=== PATIENT | female | born 1950 | race Caucasian/White ===

== ENCOUNTER → 2021-10-17 | Outpatient (CLI) | payer MEDICARE | END | disposition home or self-care (01) | LOC: LABWHC1 15:48 | PROVIDERS: ATTEND Psychiatry & Neurology Neurology | DX: Z01.818 Encounter for other preprocedural examination (principal) ==

== ENCOUNTER → 2022-06-20 | Outpatient (CLI) | payer MEDICARE | END | disposition home or self-care (01) | LOC: LABPAT 13:06 | PROVIDERS: ATTEND Orthopaedic Surgery | DX: Z01.812 Encounter for preprocedural laboratory examination (principal); M16.12 Unilateral primary osteoarthritis, left hip; Z22.322 Carrier or suspected carrier of Methicillin resistant Staphylococcus aureus | CPT/HCPCS: 87070 ==

== ENCOUNTER 2022-06-27 05:58 | Inpatient (IN) | payer MEDICARE ==
[2022-06-23 11:37] VITALS: BMI 26.0
--- NOTE | 2022-06-26 08:53 | P.HPOR ---
History of Present Illness H&P Date: 06/26/22 Chief Complaint: Left hip pain The patient is a 72-year-old female who presents with progressive left hip pain secondary to osteoarthrosis for the past 2 years. Her symptoms recently are worsening. She has pain with any weightbearing activities. She has a difficult time with walking and stairs. She does use a walker. She notes significant night symptoms. She's had previous injections without much relief. Review of Systems As per HPI Past Medical History Past Medical History: Diabetes Mellitus, Hearing Disorder / Deafness, Hypertension Additional Past Medical History / Comment(s): Migraines. Hx kidney stones. Has Pain Pump with only Saline in it. Hard of hearing. Hx severe UTI's, on Macrobid preventatively for the last 3 months. History of Any Multi-Drug Resistant Organisms: None Reported Past Surgical History: Appendectomy, Cholecystectomy Additional Past Surgical History / Comment(s): Procedure for kidney stones, D&C for miscarriage, partial hysterectomy, pain pump placed. Past Anesthesia/Blood Transfusion Reactions: Postoperative Nausea & Vomiting (PONV) Past Psychological History: Anxiety Smoking Status: Never smoker Past Alcohol Use History: None Reported Past Drug Use History: None Reported - Past Family History Sister(s) Family Medical History: Cancer Additional Family Medical History / Comment(s): Another sister had ALS. Son(s) Family Medical History: Deep Vein Thrombosis (DVT) Medications and Allergies Home Medications Medication Instructions Recorded Confirmed Type Acetaminophen [Tylenol] 325 - 650 mg PO Q4H PRN 06/23/22 06/23/22 History Aspirin [Adult Low Dose Aspirin EC] 81 mg PO DAILY 06/23/22 06/23/22 History DULoxetine HCL [Cymbalta] 120 mg PO QAM 06/23/22 06/23/22 History Folic Acid 1 mg PO HS 06/23/22 06/23/22 History Insulin Glargine,Hum.rec.anlog 25 units SQ HS 06/23/22 06/23/22 History [Lantus Solostar Pen] LORazepam [Ativan] 0.5 mg PO HS 06/23/22 06/23/22 History Nitrofurantoin Monohyd/M-Cryst 50 mg PO HS 06/23/22 06/23/22 History [Macrobid] Oxybutynin Chloride 5 mg PO BID 06/23/22 06/23/22 History Propranolol HCl [Inderal] 60 mg PO QAM 06/23/22 06/23/22 History QUEtiapine [SEROquel] 100 mg PO W/SUPPER 06/23/22 06/23/22 History Thiamine [Vitamin B-1] 100 mg PO HS 06/23/22 06/23/22 History Allergies Allergy/AdvReac Type Severity Reaction Status Date / Time iodine Allergy Dyspnea Verified 06/23/22 11:13 shellfish derived [Shellfish] Allergy Dyspnea Verified 06/23/22 11:13 morphine AdvReac Hallucinati Verified 06/23/22 11:39 ons Steroids AdvReac Causes Uncoded 06/23/22 11:40 UTI's Physical Examination - Hip left Gait: antalgic Tenderness with palpation: anterior Pain with motion: internal rotation and hip flexion ROM: flexion: 70 degrees ROM: internal rotation: 0 degrees (With pain) ROM: external rotation: 30 degrees Crepitus with motion: Yes Strength: extension: 5/5 Strength: flexion: 5/5 Strength: abduction: 5/5 Tests: impingement tests: positive Results The patient is a well-developed well-nourished female approximately 5 foot 3, 170 pounds of endomorphic habitus. HEENT exam is nonfocal. She has limited passive motion of the left hip. Straight leg raise is negative. She has shortening of the left lower extremity compared to the right. Her distal neurovascular appears intact in the left lower extremity. - Diagnostic results Hip x-ray: image reviewed (2 views of the left hip obtained in the office show severe left hip osteoarthrosis with [id number] changes and subchondral sclerosis.) Assessment and Plan Assessment: Left hip severe osteoarthrosis History of chronic low back pain with pain pump Plan: I talked to the patient with regard to her condition along with treatment options. This point she is quite symptomatic and limited because of pain related to her left hip osteoarthrosis despite previous conservative measures. After thorough discussion she opted to proceed with surgery. Operative risks were discussed at length in layman's terms. We will institute DVT prophylaxis postoperatively. We'll plan to proceed with left total hip arthroplasty utilizing a lateral approach.
[~2022-06-27 05:58] MED LIST: ACETAMINOPHEN TAB 500 MG TAB PO PRN; MELOXICAM 7.5 MG TAB PO PRN; TRANEXAMIC ACID IN NACL,ISO-OS 1,000 MG in SALINE 1 100ML.BAG IVPB PRN
[2022-06-27] MEDS ORDERED: MIDAZOLAM 2 MG/2 ML VIAL IV PRN (06:04)
[2022-06-27] MEDS ORDERED: ONDANSETRON 4 MG/2 ML VIAL IVP ONE (06:04)
[2022-06-27] MEDS ORDERED: DEXAMETHASONE SOD PHOSPHATE 4 MG/ML 1 ML VIAL IV ONE (06:04)
[2022-06-27] MEDS ORDERED: LIDOCAINE 1% (10MG/ML) FOR IV START INTRADERMA PRN (06:04)
[2022-06-27] MEDS: LACTATED RINGERS 1,000 ML IV SCH (06:28)
[2022-06-27 06:48] LABS: Glucose,Whole Blood 138 mg/dL (70-110)
[2022-06-27] MEDS ORDERED: HYDROmorphone 0.5 MG/0.5 ML SYRINGE IVP PRN ×2 (07:00→09:15)
[2022-06-27] MEDS ORDERED: ROPIVACAINE 5 MG/ML 30 ML VIAL ONE (07:39)
[2022-06-27] MEDS ORDERED: PROPOFOL 10 MG/ML 20 ML VIAL IV ONE (07:39)
[2022-06-27] MEDS ORDERED: GLYCOPYRROLATE 0.2 MG/ML 2 ML VIAL ONE (07:39)
[2022-06-27] MEDS ORDERED: fentaNYL (PF) 50 MCG/ML 2 ML AMP ONE (07:39)
[2022-06-27] MEDS ORDERED: ePHEDrine 50 MG/ML 1 ML VIAL ONE (07:39)
[2022-06-27] MEDS ORDERED: PHENYLEPHRINE-0.9% NACL SYG 1,000 MCG/10 ML SYRINGE ONE (07:39)
[2022-06-27] MEDS ORDERED: TRANEXAMIC ACID IN NACL,ISO-OS 1,000 MG/100 ML BAG ONE (07:39)
[2022-06-27] MEDS ORDERED: KETAMINE 10 MG/ML 20 ML VIAL ONE (07:39)
[2022-06-27] MEDS ORDERED: ceFAZolin 1,000 MG in SODIUM CHLORIDE 0.9% 1,000 ML IRRIGATION ONE (08:16)
[2022-06-27] MEDS ORDERED: NALOXONE 0.4 MG/ML 1 ML VIAL IV PRN (09:15)
[2022-06-27] MEDS ORDERED: MAGNESIUM HYDROXIDE 2,400 MG/10 ML CUP PO PRN (09:15)
[2022-06-27] MEDS ORDERED: HYDROcodone/APAP 7.5-325MG 1 EACH TAB PO PRN (09:15)
--- NOTE | 2022-06-27 09:31 | P.OP ---
Date of Procedure: 06/27/22 Preoperative Diagnosis: Left hip severe osteoarthrosis Postoperative Diagnosis: Same Procedure(s) Performed: Left total hip arthroplastylateral approachpress-fit Implants: Depuy Corail size 9/125/collared high offset femoral stem, 36+1.5 ceramic femoral head, 54 mm Truro acetabular shell with neutral polyethylene liner. Anesthesia: regional, spinal Surgeon: Jimenez Rubio Housing Installer #1: Emigdio Parish Estimated Blood Loss (ml): 100 Pathology: other (Femoral head) Condition: stable Disposition: PACU Indications for Procedure: The patient's a 72-year-old female who presents with progressive left hip pain secondary to osteoarthrosis despite conservative measures. A discussion of the risks and benefits of operative intervention versus continued conservative measures was made with patient. She opted to proceed with surgery. Operative risks to include infection, fracture, neurovascular injury, development of blood clots, leg length discrepancy, instability, possible component loosening/failure need for subsequent procedures was discussed. Informed consent was obtained. Operative Findings: As below Description of Procedure: The patient was brought to the operating room, and after induction of spinal anesthesia was placed in a lateral decubitus position. The bony prominences were appropriately padded. The pelvis was stable perpendicular to the floor with a pegboard. The left lower extremity was prepped and draped in normal fashion. A 12 cm incision was then made centered over the greater trochanter extending superiorly to level the ASIS and distally in line with the femoral shaft. The skin and subcutaneous tissues were divided sharply. Electrocautery was used for hemostasis. The fascia alethea and gluteus reji fascia was split in line with the skin incision. The muscle fibers were bluntly dissected proximally. A self-retaining retractor was placed. The anterior and posterior margins of the gluteus medius muscles identified and the anterior two thirds was detached from the greater trochanter with electrocautery. The gluteus minimus tendon was identified and detached in a similar fashion. A wide capsulotomy was performed. The femoral neck fracture was identified in the lower neck cut was made approximately 1 1/2 cm above the level of the lesser trochanter with a sagittal saw at a 45 the shaft. The head was then extracted with a corkscrew. Attention was then paid towards preparing the acetabular. Anterior and posterior retractors were placed. The remaining capsular labral tissues debrided sharply clearly defining the acetabular margins. Began reaming with a knee 9 mm reamer taking care to initially medialize, then reaming at 45 of abduction and 20 of anteversion. Sequential reaming is performed up to 53 mm. This was down to bleeding bony surface. A trial 54 mm acetabular shell was inserted at 45 of abduction and 20 of anteversion. This was fully seated. There was good rim fit and stability. A neutral polyethylene liner was then impacted. Care taken to avoid any soft tissue interposition. Attention was then paid towards preparing the proximal femur. A box chisel was used to open the metaphyseal region. A canal finder was used to find the femoral canal. Sequential broaching was performed up to a size 9. This is placed in 15 of anteversion with the leg perpendicular floor judging off the trans-epicondylar axis. There is good rotational stability. A calcar mill was used to fashion the medial calcar. A trial 125 high offset neck along with a 36 mm + 1.5 trial head was placed. The hip was gently reduced. It was taken through range of motion. I felt to be stable in flexion and extension with internal and external rotation. I felt there was adequate islam of soft tissue tension. The hip was gently dislocated. The trial components removed. Pulsatile lavage was utilized. The final size 09 125 degree high offset collared femoral stem was inserted again with the leg perpendicular to the floor in 15 of anteversion. Again there was good rotational stability. A 36 mm + 1.5 ceramic chrome femoral head was gently impacted. The hip was gently reduced. Again it was taken through motion and felt to be stable in flexion and extension with internal and external rotation. Pulsatile lavage was again utilized. With the leg in abduction the gluteus minimus and medius tendons reattached to the greater trochanter with #2 Ethibond suture. There was minimal drainage therefore a deep drain was not placed. The fascia alethea and gluteus reji fascia was closed w ith #2 Ethibond suture. The subcutaneous tissues were reapproximated interrupted 2-0 Vicryl sutures. The skin was reapproximated with 3-0 subcuticular strata fix suture. Skin tape and adhesive was applied. A sterile dressing was applied. The patient was awoken from sedation and transferred to recovery room in good condition. Blood loss was estimated 100 mL. No complications were incurred. Sponge and needle counts were correct in the case. Emigdio CHOW assisted during the major composes case to include exposure, implantation, and closure.
[2022-06-27 09:52] LABS: Glucose,Whole Blood 119 mg/dL (70-110)
--- NOTE | 2022-06-27 10:03 | XR ---
EXAMINATION TYPE: XR Hip Limited LT DATE OF EXAM: 06/27/2022 COMPARISON: None HISTORY: Posthip surgery TECHNIQUE: Single AP left hip FINDINGS: There is a left hip prosthesis with acetabular component. No acute fractures are evident. E lectronic device overlies the pelvis. IMPRESSION: 1. No acute fractures post left hip replacement.
[2022-06-27 11:33] LABS: Glucose,Whole Blood 127 mg/dL (70-110)
[2022-06-27 11:44] LABS: Basophils % (A) 0 %; Eosinophils # (A) 0.3 k/uL (0-0.7); Eosinophils % (A) 3 %; HCT 38.3 % (34.0-46.0); HGB 12.1 gm/dL (11.4-16.0); Lymphocytes # (A) 2.4 k/uL (1.0-4.8); Lymphocytes % (A) 27 %; MCH 28.9 pg (25.0-35.0); MCHC 31.6 g/dL (31.0-37.0); MCV 91.3 fL (80.0-100.0); Mean Platelet Volume 7.7; Monocytes # (A) 0.6 k/uL (0-1.0); Monocytes % (A) 6 %; Neutrophils # (A) 5.7 k/uL (1.3-7.7); Neutrophils % (A) 62 %; Platelet Count 196 k/uL (150-450); RDW 13.9 % (11.5-15.5); WBC 9.2 k/uL (3.8-10.6)
[2022-06-27 11:50] LABS: ALT 19 U/L (4-34); AST 35 U/L (14-36); African American GFR (CKD) >90 (>60 ml/min/1.73 sqM); Albumin 3.2 g/dL (3.5-5.0); Albumin/Globulin Ratio 1.4; Alkaline Phosphatase 76 U/L (38-126); Anion Gap 6 mmol/L; Blood Urea Nitrogen 17 mg/dL (7-17); Calcium 8.6 mg/dL (8.4-10.2); Carbon Dioxide 29 mmol/L (22-30); Chloride 101 mmol/L (98-107); Globulin 2.3 g/dL; Glucose 132 mg/dL (74-99); Non-African American GFR(CKD) 88 (>60 ml/min/1.73 sqM); Potassium 4.7 mmol/L (3.5-5.1); Sodium 136 mmol/L (137-145); Total Bilirubin 0.4 mg/dL (0.2-1.3); Total Protein 5.5 g/dL (6.3-8.2)
--- NOTE | 2022-06-27 12:05 | XR ---
EXAMINATION TYPE: XR chest 1V portable DATE OF EXAM: 06/27/2022 COMPARISON: None INDICATION: CHF TECHNIQUE: Single frontal view of the chest is obtained. FINDINGS: The heart size is normal. The pulmonary vasculature is normal. Some mild subsegmental atelectasis may be at the lung bases. Lungs otherwise appear clear. IMPRESSION: 1. Suggestion of mild subsegmental atelectasis lung bases.
[2022-06-27] MEDS ORDERED: IPRATROPIUM-ALBUTEROL 3 ML NEB INHALATION PRN (12:39)
--- NOTE | 2022-06-27 13:14 | CONS ---
CONSULTATION REASON FOR CONSULTATION: Advice regarding diabetes mellitus and other issues requested by orthopedist. HISTORY OF PRESENT ILLNESS: This is a 72-year-old woman with a past medical history of multiple medical issues including diabetes mellitus type 2, underwent left total knee joint arthroplasty. Postoperatively, the patient was slightly hypoxic. The patient is slightly groggy at this time. I ordered a chest x-ray which showed some atelectasis mainly on the right side. There is no history of fever, rigors, or chills at this time. PAST MEDICAL HISTORY: Reviewed include diabetes, rest of the history and rest of the chart is also reviewed. HOME MEDICATIONS: Reviewed include valsartan, dose and rest of medications reviewed. ALLERGIES: Iodine, rest of the allergies reviewed. FAMILY HISTORY: History of cancer and ALS. SOCIAL HISTORY: No history of smoking or alcohol. REVIEW OF SYSTEMS: A 14-point review is negative except as mentioned. PHYSICAL EXAMINATION: VITAL SIGNS: Pulse is 69, blood pressure 106/60, respirations 14, the pulse ox was 99% on 6 L on the computer. HEENT: Conjunctivae normal. NECK: No jugular venous distention. CARDIOVASCULAR: S1, S2 muffled. RESPIRATIONS: Diminished at the bases, a few scattered rhonchi. ABDOMEN: Soft, nontender. LEGS: Status post surgery. NERVOUS SYSTEM: No focal deficits. LABORATORY DATA: Accu-Cheks 127, rest of the labs are noted. ASSESSMENT: 1. Status post left hip arthroplasty. 2. Atelectasis on the right mainly. 3. Diabetes mellitus type 2. 4. Hypertension. 5. Multiple medical issues. RECOMMENDATIONS AND DISCUSSION: This 72-year-old woman presents with multiple complex medical issues. At this time, I recommended to resume the home medication, monitor blood sugars closely, DVT prophylaxis. I would also recommend a course of bronchodilators and incentive spirometry. We will follow the patient closely. The patient may be asked to follow up with primary physician closely after discharge. MMODL / IJN: [id number] /
[2022-06-27] MEDS: IPRATROPIUM-ALBUTEROL 3 ML NEB INHALATION SCH ×2 (15:57→20:56)
[2022-06-27 16:44] LABS: Glucose,Whole Blood 170 mg/dL (70-110)
[2022-06-27] MEDS: QUEtiapine 50 MG TAB PO SCH (16:52)
[2022-06-27] MEDS: HYDROmorphone 1 MG/ML 1 ML SYRINGE IVP PRN ×2 (19:05→21:48)
[2022-06-27] MEDS: HYDROcodone/APAP 7.5-325MG 1 EACH TAB PO PRN (20:15)
[2022-06-27] MEDS: CYCLOBENZAPRINE 5 MG TAB PO PRN (20:16)
[2022-06-27] MEDS: FOLIC ACID 1 MG TAB PO SCH (20:17)
[2022-06-27] MEDS: THIAMINE 100 MG TAB PO SCH (20:17)
[2022-06-27] MEDS: LORazepam 0.5 MG TAB PO SCH (20:18)
[2022-06-27] MEDS: SENNOSIDES-DOCUSATE SODIUM 1 EACH TAB PO SCH (20:18)
[2022-06-27] MEDS ORDERED: OXYBUTYNIN CHLORIDE 5 MG TAB PO SCH (21:00)
[2022-06-27 21:40] LABS: Glucose,Whole Blood 199 mg/dL (70-110)
[2022-06-27] MEDS: INSULIN DETEMIR (LEVEMIR) 100 UNIT/ML SYR SQ SCH (21:45)
--- NOTE | 2022-06-27 22:31 | P.ANPRN ---
Procedure Note - Anesthesia - Nerve Block Performed Left [place] Single Date of Procedure: 06/27/22 Procedure Start Time: 07:18 Procedure Stop Time: 07:26 Location of Patient: PreOp Indication: Acute Post-Operative Pain, Requested by Surgeon Sedation Type: Sedate with meaningful contact maintained Preparation: Sterile Prep Position: Supine Needle Types: Pajunk Needle Gauge: 21 Ultrasound used to visualize needle placement: Yes Ultrasound used to observe medication spread: Yes Injectate: 0.5% Ropivacaine (see comment for volume) (30mL) Blood Aspirated: No Pain Paresthesia on Injection Noted: No Resistance on Injection: Normal Image Stored and Saved: Yes Events: Uneventful and Well Tolerated
[2022-06-28] MEDS: HYDROcodone/APAP 7.5-325MG 1 EACH TAB PO PRN ×2 (00:01→07:52)
[2022-06-28] MEDS: HYDROmorphone 1 MG/ML 1 ML SYRINGE IVP PRN ×4 (01:33→17:27)
[2022-06-28] MEDS: LACTATED RINGERS 1,000 ML IV SCH (02:46)
[2022-06-28 05:56] LABS: Glucose,Whole Blood 156 mg/dL (70-110)
[2022-06-28 07:08] LABS: Amorphous Sediment,Urine Few /hpf; Appearance,Urine Cloudy (Clear); Bacteria,Urine Rare /hpf; Bilirubin,Urine Negative (Negative); Blood,Urine Small (Negative); Color,Urine Yellow; Glucose,Urine (UA) Negative (Negative); Hyaline Casts,Urine 1 /lpf (0-2); Ketones,Urine Negative (Negative); Leukocyte Esterase,Urine Negative (Negative); Nitrite,Urine Negative (Negative); PH, Urine 7.5 (5.0-8.0); Protein,Urine Negative (Negative); RBC,Urine 39 /hpf (0-5); Specific Gravity,Urine 1.022 (1.001-1.035); Urobilinogen,Urine <2.0 mg/dL (<2.0); WBC,Urine 1 /hpf (0-5)
[2022-06-28] MEDS: CYCLOBENZAPRINE 5 MG TAB PO PRN (07:52)
[2022-06-28] MEDS: ASPIRIN 81 MG PO SCH (08:07)
[2022-06-28] MEDS: PROPRANOLOL 20 MG TAB PO SCH (08:07)
[2022-06-28] MEDS: VALSARTAN 40 MG TAB PO SCH (08:07)
[2022-06-28] MEDS: RIVAROXABAN 10 MG TAB PO SCH (08:07)
[2022-06-28] MEDS: DULoxetine HCL 60 MG CAPSULE.DR PO SCH (08:07)
[2022-06-28] MEDS: IPRATROPIUM-ALBUTEROL 3 ML NEB INHALATION SCH ×3 (08:51→20:04)
[2022-06-28] MEDS ORDERED: HYDROcodone/APAP 10-325MG 1 EACH TAB PO PRN (09:20)
--- NOTE | 2022-06-28 09:53 | P.PN ---
Subjective Progress Note Date: 06/28/22 Principal diagnosis: Left hip osteoarthritis Patient seen at bedside this morning mentioning that her pain has been very intense since surgery yesterday. Patient does not feel that a medication has been helping control her pain. Patient says most of the pain is located in her left hip. Patient says she has not been able to urinate since surgery yesterday. Patient says normally she is able to urinate okay home. Patient denies having any issues from her previous surgeries with urinary retention. Patient says she has not seen a urologist before. Patient says she is hoping to go home when she is discharged from the hospital. Patient says she does have a walker for home and her will be able to help her at home. Patient says she has not had bowel movement yet, however, patient says she has been passing gas. Patient denies chest pain, fever, shortness of breath, nausea, vomiting, change in vision, loss of bowel control. Objective - Vital Signs Vital signs: Vital Signs Temp 99.0 F 06/28/22 07:22 Pulse 87 06/28/22 07:22 Resp 20 06/28/22 07:22 BP 134/79 06/28/22 07:22 Pulse Ox 96 06/28/22 07:22 FiO2 Intake & Output 06/27/22 06/28/22 06/28/22 18:59 06:59 18:59 Intake Total 981 540 Output Total 100 800 Balance 881 -260 Weight 66.68 kg Intake: IV 801 Intake, IV Titration 340 Amount Lactated Ringers 1,000 ml 240 @ 20 mls/hr IV .Q24H [facility] Rx#:[id number] ceFAZolin 2 gm In Sodium 50 Chloride 0.9% 50 ml @ 100 mls/hr IVPB Q8HR [facility] Rx# :[id number] cefTRIAXone 1 gm In 50 Sodium Chloride 0.9% 50 ml @ 100 mls/hr IVPB Q24H [facility] Rx#:[id number] Oral 180 200 Output: Urine 800 Straight 800 Estimated Blood Loss 100 Other: # Voids 1 1 - Exam Left hip: Incision is clean, dry, and intact. The exofin fusion tape is in good condition. There is minimal soft tissue swelling and ecchymosis surrounding the medial and lateral aspects of the incision. Calf is soft, no tenderness with palpation. Plantar flexion, dorsiflexion, EHL, FHL are intact. Sensory exam to light touch throughout the extremity is intact, dorsal pedis pulses 2+. - Labs CBC & Chem 7: 06/27/22 11:25 06/27/22 11:25 Labs: Abnormal Lab Results - Last 24 Hours (Table) 06/27/22 06/27/22 06/27/22 Range/Units 09:50 11:25 11:30 Sodium 136 L (137-145) mmol/L Glucose 132 H (74-99) mg/dL POC Glucose (mg/dL) 119 H 127 H (70-110) mg/dL Total Protein 5.5 L (6.3-8.2) g/dL Albumin 3.2 L (3.5-5.0) g/dL Urine Appearance (Clear) Urine Blood (Negative) Urine RBC (0-5) /hpf Amorphous Sediment (None) /hpf Urine Bacteria (None) /hpf 06/27/22 06/27/22 06/28/22 Range/Units 16:43 21:38 05:55 Sodium (137-145) mmol/L Glucose (74-99) mg/dL POC Glucose (mg/dL) 170 H 199 H 156 H (70-110) mg/dL Total Protein (6.3-8.2) g/dL Albumin (3.5-5.0) g/dL Urine Appearance (Clear) Urine Blood (Negative) Urine RBC (0-5) /hpf Amorphous Sediment (None) /hpf Urine Bacteria (None) /hpf 06/28/22 Range/Units 06:10 Sodium (137-145) mmol/L Glucose (74-99) mg/dL POC Glucose (mg/dL) (70-110) mg/dL Total Protein (6.3-8.2) g/dL Albumin (3.5-5.0) g/dL Urine Appearance Cloudy H (Clear) Urine Blood Small H (Negative) Urine RBC 39 H (0-5) /hpf Amorphous Sediment Few H (None) /hpf Urine Bacteria Rare H (None) /hpf Assessment and Plan Assessment: 1. Left hip osteoarthritis - Postoperative day 1 status post left total hip arthroplasty Plan: 1. Left hip osteoarthritis - patient at bedside this morning in a lot of pain. We'll change the medication from Wever 7.5 to Wever 10. Ice the hip on and off for 20 mins at a time. Pending PT evaluation. Patient does have a walker for home. Patient has had urinary retention. Patient has been straight cathed 2 times per nurse. If patient continues to have postoperative urinary retention we will consult urology for further intervention. We will keep patient one more night for pain control. Plan for discharge home tmrw vs [facility] tmrw. We will continue to follow patient during her stay in hospital. 2. Appreciate medical management 3. Pain management - Wever 10 mg/325 mg; Flexeril 5 mg twice a day; Dilaudid 4. DVT prophylaxis - Xarelto 5. GI prophylaxis - senna; milk of magnesia 6. PT/OT - weightbearing as tolerated with walker and assistance 7. Encourage incentive spirometer use 8. Discharge planning - home with health services vs [facility] tmrw Time with Patient: Less than 30
[2022-06-28 11:13] LABS: Glucose,Whole Blood 167 mg/dL (70-110)
[2022-06-28 11:42] LABS: Basophils # (A) 0.03 X 10*3/uL (0.00-0.10); Basophils % (A) 0.2 %; Eosinophils # (A) 0.09 X 10*3/uL (0.04-0.35); Eosinophils % (A) 0.7 %; HCT 37.5 % (37.2-46.3); HGB 12.2 g/dL (12.0-15.0); Immature Grans, Automated 0.5 %; Lymphocytes # (A) 3.34 X 10*3/uL (0.90-5.00); Lymphocytes % (A) 26.1 %; MCHC 32.5 g/dL (32.0-37.0); MCV 89.1 fL (80.0-97.0); Monocytes # (A) 1.17 X 10*3/uL (0.20-1.00); Monocytes % (A) 9.1 %; NRBC Per 100 WBC 0 /100 WBCS (0.0-0.0); Neutrophils # (A) 8.13 X 10*3/uL (1.80-7.70); Neutrophils % (A) 63.4 %; Platelet Count 230 X 10*3/uL (140-440); RBC 4.21 X 10*6/uL (4.10-5.20); RDW 13.8 % (11.5-14.5); WBC 12.82 X 10*3/uL (4.50-10.00)
--- NOTE | 2022-06-28 14:32 | PN ---
PROGRESS NOTE DATE OF SERVICE: 06/28/2022 SUBJECTIVE: This is a 72-year-old woman who was admitted with left hip arthroplasty, also had features of UTI. Patient also had atelectasis. No chest pain, no palpitations, no fever. The patient is complaining of severe pain. OBJECTIVE: VITAL SIGNS: Pulse is 96, blood pressure 130/73, respirations 17, temperature 99.8. The patient is mildly febrile. Pulse ox 94% on room air. HEENT: Conjunctivae normal. NECK: No jugular venous distention. CARDIOVASCULAR: S1, S2 muffled. RESPIRATIONS: Diminished at the basis, scattered rhonchi. ABDOMEN: Soft, nontender. NERVOUS SYSTEM: No focal deficits. LABORATORY DATA: Reviewed. ASSESSMENT: 1. Status post left hip arthroplasty. 2. Possible UTI with fever. 3. Atelectasis of the right lung mainly. 4. Diabetes mellitus type 2. 5. Hypertension. 6. Multiple medical issues. RECOMMENDATIONS AND DISCUSSION: Recommended to continue current management, continue symptomatic treatment. Obtain cultures, blood and urine cultures, also empiric antibiotics, otherwise to cover the UTI as well as possible developing pneumonia and guarded prognosis. Further recommendations to follow, closely follow with Orthopedic Surgery and Pain Management. MMODL / IJN: [id number] /
[2022-06-28 16:31] LABS: Glucose,Whole Blood 166 mg/dL (70-110)
[2022-06-28] MEDS: QUEtiapine 50 MG TAB PO SCH (17:12)
[2022-06-28 20:18] LABS: Glucose,Whole Blood 459 mg/dL (70-110)
[2022-06-28 20:19] LABS: Glucose,Whole Blood 178 mg/dL (70-110)
[2022-06-28] MEDS: THIAMINE 100 MG TAB PO SCH (21:17)
[2022-06-28] MEDS: FOLIC ACID 1 MG TAB PO SCH (21:17)
[2022-06-28] MEDS: INSULIN DETEMIR (LEVEMIR) 100 UNIT/ML SYR SQ SCH (21:17)
[2022-06-28] MEDS: SENNOSIDES-DOCUSATE SODIUM 1 EACH TAB PO SCH (21:17)
[2022-06-29] MEDS: HYDROmorphone 1 MG/ML 1 ML SYRINGE IVP PRN (00:07)
[2022-06-29] MEDS: HYDROcodone/APAP 5-325MG 1 EACH TAB PO PRN ×3 (05:42→17:31)
[2022-06-29] MEDS: CYCLOBENZAPRINE 5 MG TAB PO PRN (05:43)
[2022-06-29] MEDS: LORazepam 0.5 MG TAB PO SCH (05:56)
[2022-06-29 06:15] LABS: Glucose,Whole Blood 173 mg/dL (70-110)
[2022-06-29] MEDS: DULoxetine HCL 60 MG CAPSULE.DR PO SCH (07:54)
[2022-06-29] MEDS: ASPIRIN 81 MG PO SCH (07:54)
[2022-06-29] MEDS: RIVAROXABAN 10 MG TAB PO SCH (07:54)
[2022-06-29] MEDS: IPRATROPIUM-ALBUTEROL 3 ML NEB INHALATION SCH ×3 (09:09→21:02)
--- NOTE | 2022-06-29 09:35 | P.PN ---
Subjective Progress Note Date: 06/29/22 Principal diagnosis: Status post left total knee arthroplasty Patient was evaluated today at bedside, she is resting in her hospital bed. Patient seems very confused today at bedside. I did discuss this with nursing, she did mention that the patient's mentation was significantly improved this morning. She had received a combination of Ativan, Seroquel and pain medication. They've held her blood pressure medications along with altering the Ativan and Seroquel which has seemed to improve her mentation. Patient is also being worked up for urinary tract infection. She is an O 2 at bedside today. Patient notes discomfort in the left lower extremity. She states that she has not been up and ambulating at today. She has been urinating without difficulty. She currently denies any headaches, lightheadedness, chest pain, shortness of breath Objective - Vital Signs Vital signs: Vital Signs Temp 99.3 F 06/29/22 06:55 Pulse 92 06/29/22 09:17 Resp 19 06/29/22 06:55 BP 111/67 06/29/22 06:55 Pulse Ox 91 L 06/29/22 06:55 FiO2 Intake & Output 06/28/22 06/29/22 06/29/22 18:59 06:59 18:59 Output Total 350 Balance -350 Output: Urine 100 Post Void Residual 250 Other: Voiding Method Bedside Commode # Voids 1 2 - Exam Left lower extremity: Operative bandage was changed today at bedside. Incision is clean, dry and intact. Surgical tape is in good position and condition. No significant b ruising is present, mild swelling is present in the anterior lateral thigh. Plantar flexion, dorsiflexion, EHL, FHL is intact. Knee extension and flexion are intact. Patient does demonstrate weakness with hip flexion. Calf is soft, no tenderness with palpation. Dorsalis pedis pulses 2+ - Labs CBC & Chem 7: 06/28/22 05:43 06/27/22 11:25 Labs: Abnormal Lab Results - Last 24 Hours (Table) 06/28/22 06/28/22 06/28/22 Range/Units 05:43 11:12 16:30 WBC 12.82 H (4.50-10.00) X 10*3/uL Immature Gran # 0.06 H (0.00-0.04) X 10*3/uL Neutrophils # 8.13 H (1.80-7.70) X 10*3/uL Monocytes # 1.17 H (0.20-1.00) X 10*3/uL POC Glucose (mg/dL) 167 H 166 H (70-110) mg/dL 06/28/22 06/28/22 06/29/22 Range/Units 20:17 20:18 06:13 WBC (4.50-10.00) X 10*3/uL Immature Gran # (0.00-0.04) X 10*3/uL Neutrophils # (1.80-7.70) X 10*3/uL Monocytes # (0.20-1.00) X 10*3/uL POC Glucose (mg/dL) 459 H 178 H 173 H (70-110) mg/dL Microbiology - Last 24 Hours (Table) 06/28/22 06:10 Urine Culture - Preliminary Urine,Catheterized Assessment and Plan Assessment: Postoperative day #2 status post left total hip arthroplasty, lateral approach Altered mental status UTI Other medical comorbidities Plan: I did discuss with nursing today we would be adjusting her medications. I did discontinue the Lockhart 10 mg, Dilaudid and Flexeril at this time. We will c ontinue to utilize the Lockhart 5 mg/325 mg sparingly. Okay to use oral Tylenol Nursing plans to discuss with internal medicine and Ativan/Seroquel and alternatives GI and DVT prophylaxis, continue with stool softeners along with Xarelto 10 mg daily during hospital stay. Plan for utilize a patient of Xarelto 10 mg for 26 days at discharge Weight-bear as tolerated with walker Continue PT/OT Other medical specialty recommendations appreciated Discharge planning: Would recommend additional night stay in hospital to continue to monitor her mental status and optimize medications Time with Patient: Less than 30
[2022-06-29] MEDS: VALSARTAN 40 MG TAB PO SCH (09:42)
[2022-06-29] MEDS: LACTATED RINGERS 1,000 ML IV SCH (09:42)
[2022-06-29] MEDS: PROPRANOLOL 20 MG TAB PO SCH (09:42)
[2022-06-29 10:32] LABS: Basophils # (A) 0.03 X 10*3/uL (0.00-0.10); Basophils % (A) 0.3 %; Eosinophils # (A) 0.15 X 10*3/uL (0.04-0.35); Eosinophils % (A) 1.5 %; HCT 32.3 % (37.2-46.3); HGB 10.5 g/dL (12.0-15.0); Immature Grans, Automated 0.9 %; Lymphocytes # (A) 2.25 X 10*3/uL (0.90-5.00); Lymphocytes % (A) 22.2 %; MCH 29.4 pg (27.0-32.0); MCHC 32.5 g/dL (32.0-37.0); MCV 90.5 fL (80.0-97.0); Mean Platelet Volume 10.4 fL (9.5-12.2); Monocytes # (A) 1.19 X 10*3/uL (0.20-1.00); Monocytes % (A) 11.7 %; NRBC Per 100 WBC 0 /100 WBCS (0.0-0.0); Neutrophils # (A) 6.43 X 10*3/uL (1.80-7.70); Neutrophils % (A) 63.4 %; Platelet Count 168 X 10*3/uL (140-440); RBC 3.57 X 10*6/uL (4.10-5.20); RDW 14.4 % (11.5-14.5); WBC 10.14 X 10*3/uL (4.50-10.00)
[2022-06-29 10:34] LABS: African American GFR (CKD) 56.2 (60.0-200.0); Anion Gap 9.9 mmol/L (10.00-18.00); BUN/Creat Ratio 14.78 Ratio (12.00-20.00); Blood Urea Nitrogen 16.7 mg/dL (9.0-27.0); Calcium 8.7 mg/dL (8.7-10.3); Carbon Dioxide 25.5 mmol/L (20.0-27.5); Non-African American GFR(CKD) 48.5 (60.0-200.0); Potassium 3.7 mmol/L (3.5-5.5)
[2022-06-29 11:22] LABS: Glucose,Whole Blood 157 mg/dL (70-110)
--- NOTE | 2022-06-29 13:36 | PN ---
PROGRESS NOTE DATE OF SERVICE: 06/29/2022 SUBJECTIVE: This is a 72-year-old woman who was admitted after left hip arthroplasty, had possible UTI also. The patient is also confused, possibly secondary to medications. No chest pain or palpitations. OBJECTIVE: VITAL SIGNS: Pulse is 54, blood pressure 111/67, respirations 19. CHEST: Clear to auscultation. ABDOMEN: Soft, status post surgery. LABORATORY DATA: Labs are reviewed. ASSESSMENT: 1. Status post left hip arthroplasty. 2. Possible urinary tract infection with fever present on admission. 3. Atelectasis of the right lung possibly. 4. Diabetes mellitus, type 2. 5. Hypertension. 6. Multiple medical issues. RECOMMENDATIONS: Recommend to continue current medications. Continue symptomatic treatment. Continue incentive spirometry. Continue the antibiotics. We will cut down the pain medications and sedatives. Closely follow. Further recommendations to follow. MMDIONIL / CHANCEN: [id number] /
[2022-06-29 16:54] LABS: Glucose,Whole Blood 204 mg/dL (70-110)
[2022-06-29] MEDS: HYDROmorphone 0.5 MG/0.5 ML SYRINGE IVP PRN ×2 (20:06→23:06)
[2022-06-29 20:34] LABS: Glucose,Whole Blood 184 mg/dL (70-110)
[2022-06-29] MEDS: INSULIN DETEMIR (LEVEMIR) 100 UNIT/ML SYR SQ SCH (20:35)
[2022-06-29] MEDS: FOLIC ACID 1 MG TAB PO SCH (20:36)
[2022-06-29] MEDS: SENNOSIDES-DOCUSATE SODIUM 1 EACH TAB PO SCH (20:36)
[2022-06-29] MEDS: THIAMINE 100 MG TAB PO SCH (20:36)
[2022-06-30] MEDS: HYDROcodone/APAP 5-325MG 1 EACH TAB PO PRN ×2 (01:31→09:42)
[2022-06-30] MEDS: LACTATED RINGERS 1,000 ML IV SCH (06:10)
[2022-06-30 06:15] LABS: Glucose,Whole Blood 124 mg/dL (70-110)
[2022-06-30 08:15] VITALS: BP 145/78; RESP 16; TEMP 99
[2022-06-30] MEDS: VALSARTAN 40 MG TAB PO SCH (08:54)
[2022-06-30] MEDS: PROPRANOLOL 20 MG TAB PO SCH (08:54)
[2022-06-30] MEDS: ASPIRIN 81 MG PO SCH (08:54)
[2022-06-30] MEDS: RIVAROXABAN 10 MG TAB PO SCH (08:54)
[2022-06-30] MEDS: DULoxetine HCL 60 MG CAPSULE.DR PO SCH (08:54)
[2022-06-30] MEDS: IPRATROPIUM-ALBUTEROL 3 ML NEB INHALATION SCH ×2 (09:13→12:36)
--- NOTE | 2022-06-30 09:58 | P.DS ---
Providers Date of admission: 06/30/22 08:09 Expected date of discharge: 06/30/22 Attending physician: Jimenez Rubio Consults: 06/27/22 09:22 Consult Physician Routine Consulting Provider: Nohemy Livingston Consult Reason/Comments: Medical Management s/p left total hip arthroplasty (lateral approach) Do you want consulting provider notified?: Yes Primary care physician: Sonja Gilbert Hospital Course: Date of admission: 06/27/2022 Date of discharge: 06/30/2022 Admission diagnosis: Left hip osteoarthritis Discharge diagnosis: Same Attending physician: Dr. Rubio Surgical procedures: Left total hip arthroplasty Brief history: Patient is a 72-year-old female with a history of progressive primary left hip osteoarthritis. At this point patient has failed conservative treatment measures and has opted to proceed with a elective left total hip arthroplasty. Hospital course: Details of patient's surgery can be found in operative report. Patient tolerated the procedure well and was subsequently transported to orthopedic floor. Patient's orthopeidc and medical care was provided daily. Patient had daily laboratory tests performed for evaluation of overall blood counts. Patient had daily physical therapy to include strengthening range of motion as well as education with walker ambulation. Patient was treated with Xa relto for their postoperative DVT prophylaxis during their inpatient stay. Patient was noted to have a relatively uneventful postoperative course. Patient reported satisfactory pain control with oral pain medications by postoperative day there are 3. Patient showed satisfactory progress with physical therapy. Patient moved steadily through the program and had no difficulty meeting the goals by postoperative day 3. Given patient's otherwise satisfactory course and having met physical therapy goals, plan is to discharge patient to rehab on postoperative day 3. Discharge condition/disposition: Patient will be discharged to rehab in stable condition. Discharge medications: Instructions are given on resumption of patient's normal daily medications per primary care recommendation, in addition patient will be prescribed [place]; senna; Eliquis 2.5 mg BID x 2 weeks Discharge instructions: 1. Wound care and infection precautions, keep incision dry and covered while showering, no lotions, creams, moisturizers. No soaking, tubs, pools, hottubs. Do not scrub over the incision. 2. Weight-bear as tolerated with walker / cane until follow-up. 3. Ice and elevate when necessary. Do not exceed 20 minutes per hour with ice pack. 4. Utilize compression sleeve until seen at first follow up appointment. 5. Visiting nursing care. 6. Home physical therapy. 7. Pain meds and anticoagulants per prescription. 8. Pain medication has potential to cause constipation. Increase oral fluid and fiber intake. Contact primary care provider if you have not had a bowel movement within 48 hours after discharge 9. No anti-inflammatory medication until discussed at first post operative visit, this including Motrin, Aleve, Mobic, Diclofenac. 10. Follow up in office at 2 weeks postop with Celso Shelley PA-C / Emigdio Parish PA-C 11. Follow up with your primary care doctor 7-10 days after discharge. 12. Contact [facility] with any questions, . Assessment: Left hip osteoarthritis Procedures: Left total hip arthroplasty Patient Condition at Discharge: Good Plan - Discharge Summary Discharge Rx Participant: Yes New Discharge Prescriptions: New Magnesium Hydroxide [Milk of Magnesia Concentrate] 2,400 mg PO DAILY PRN ml PRN Reason: Constipation Apixaban [Eliquis] 2.5 mg PO BID #60 tab Sennosides/Docusate Sodium [Senna Plus 8.6-50 mg Softgel] 1 each PO DAILY #20 capsule HYDROcodone/APAP 5-325MG [[place] 5-325] 1 tab PO Q6HR PRN 3 Days #24 tab PRN Reason: Pain Continue DULoxetine HCL [Cymbalta] 120 mg PO QAM Aspirin [Adult Low Dose Aspirin EC] 81 mg PO DAILY Acetaminophen [Tylenol] 325 - 650 mg PO Q4H PRN PRN Reason: Pain Valsartan 40 mg PO DAILY Thiamine [Vitamin B-1] 100 mg PO HS Folic Acid 1 mg PO HS Insulin Glargine,Hum.rec.anlog [Lantus Solostar Pen] 25 units SQ HS Propranolol HCl [Inderal] 60 mg PO QAM Oxybutynin Chloride 5 mg PO BID Discontinued QUEtiapine [SEROquel] 100 mg PO W/SUPPER LORazepam [Ativan] 0.5 mg PO HS Nitrofurantoin Monohyd/M-Cryst [Macrobid] 50 mg PO HS Discharge Medication List Acetaminophen [Tylenol] 325 - 650 mg PO Q4H PRN 06/23/22 [History] Aspirin [Adult Low Dose Aspirin EC] 81 mg PO DAILY 06/23/22 [History] DULoxetine HCL [Cymbalta] 120 mg PO QAM 06/23/22 [History] Folic Acid 1 mg PO HS 06/23/22 [History] Insulin Glargine,Hum.rec.anlog [Lantus Solostar Pen] 25 units SQ HS 06/23/22 [History] Oxybutynin Chloride 5 mg PO BID 06/23/22 [History] Propranolol HCl [Inderal] 60 mg PO QAM 06/23/22 [History] Thiamine [Vitamin B-1] 100 mg PO HS 06/23/22 [History] Valsartan 40 mg PO DAILY 06/27/22 [History] Apixaban [Eliquis] 2.5 mg PO BID #60 tab 06/30/22 [Rx] HYDROcodone/APAP 5-325MG [[place] 5-325] 1 tab PO Q6HR PRN 3 Days #24 tab 06/30/22 [Rx] Magnesium Hydroxide [Milk of Magnesia Concentrate] 2,400 mg PO DAILY PRN ml 06/30/22 [Rx] Sennosides/Docusate Sodium [Senna Plus 8.6-50 mg Softgel] 1 each PO DAILY #20 capsule 06/30/22 [Rx] Follow up Appointment(s)/Referral(s): Emigdio Parish, TERI [PHYSICIAN BLENDING [employer] HELPER] - 2 Weeks Patient Instructions/Handouts: Total Hip Replacement (DC) Activity/Diet/Wound Care/Special Instructions: Orthopedic Discharge Instructions: 1. Wound care and infection precautions, keep incision dry and covered while showering, no lotions, creams, moisturizers. No soaking, pools, hot tubs. Do not scrub over incision. 2. Weight-bear as tolerated with walker / cane until follow-up. 3. Ice and elevate when necessary. Do not exceed 20 minutes per hour with ice pack. 4. Utilize compression sleeve until seen at first follow up appointment. 5. Pain meds and anticoagulants per prescription. 6. Pain medication has potential to cause constipation. Increase oral fluid and fiber intake. Contact primary care provider if you have not had a bowel movement within 48 hours after discharge. 7. No anti-inflammatory medication until discussed at first post operative visit, this including Motrin, Aleve, Mobic, Diclofenac. 8. Follow up in office at 2 weeks postop with Celso Shelley PA-C / Emigdio Parish PA-C 9. Follow up with your primary care doctor 7-10 days after discharge. 10. Contact [facility] with any questions, . Keep incision clean, dry, intact. While showering, cover fusion tape with Saran wrap. Keep fusion tape on until follow-up appointment in office in 2 weeks Discharge Disposition: TRANSFER TO SNF/ECF
--- NOTE | 2022-06-30 10:02 | P.PN ---
Subjective Progress Note Date: 06/30/22 Principal diagnosis: Left hip osteoarthritis Patient seen at bedside this morning lying semrirecumbent in bed. Patient says yesterday she did sit up in the chair for several hours. Patient says her hip is feeling a little bit better than it was the past couple days. Patient says she did get up with physical therapy yesterday and walked around the room a bit. Patient says she has urinated. Patient says she has not had bowel movement, however, patient says she has been passing gas. Patient says she does have a walker at home. Patient states most of the pain is right over the incision on the left hip. Patient denies radiation pain.Patient denies chest pain, fever, shortness of breath, nausea, vomiting, change in vision, loss of bowel control. Objective - Vital Signs Vital signs: Vital Signs Temp 99 F 06/30/22 07:01 Pulse 84 06/30/22 09:24 Resp 16 06/30/22 07:01 BP 145/78 06/30/22 07:01 Pulse Ox 94 L 06/30/22 07:01 FiO2 Intake & Output 06/29/22 06/30/22 06/30/22 18:59 06:59 18:59 Output Total 250 Balance -250 Output: Urine 250 Other: Voiding Method Bedside Commode # Voids 1 - Exam Left hip: Incision is clean, dry, and intact. The exofin fusion tape is in good condition. There is minimal soft tissue swelling and ecchymosis surrounding the medial and lateral aspects of the incision. Calf is soft, no tenderness with palpation. Plantar flexion, dorsiflexion, EHL, FHL are intact. Sensory exam to light touch throughout the extremity is intact, dorsal pedis pulses 2+. - Labs CBC & Chem 7: 06/29/22 04:23 06/29/22 04:23 Labs: Abnormal Lab Results - Last 24 Hours (Table) 06/29/22 06/29/22 06/29/22 Range/Units 04: 04:23 11:21 WBC 10.14 H (4.50-10.00) X 10*3/uL RBC 3.57 L (4.10-5.20) X 10*6/uL Hgb 10.5 L (12.0-15.0) g/dL Hct 32.3 L (37.2-46.3) % Immature Gran # 0.09 H (0.00-0.04) X 10*3/uL Monocytes # 1.19 H (0.20-1.00) X 10*3/uL Anion Gap 9.90 L (10.00-18.00) mmol/L Est GFR (CKD-EPI)AfAm 56.2 L (60.0-200.0) Est GFR (CKD-EPI)NonAf 48.5 L (60.0-200.0) Glucose 168 H (70-110) mg/dL POC Glucose (mg/dL) 157 H (70-110) mg/dL 06/29/22 06/29/22 06/30/22 Range/Units 16:53 20:32 06:13 WBC (4.50-10.00) X 10*3/uL RBC (4.10-5.20) X 10*6/uL Hgb (12.0-15.0) g/dL Hct (37.2-46.3) % Immature Gran # (0.00-0.04) X 10*3/uL Monocytes # (0.20-1.00) X 10*3/uL Anion Gap (10.00-18.00) mmol/L Est GFR (CKD-EPI)AfAm (60.0-200.0) Est GFR (CKD-EPI)NonAf (60.0-200.0) Glucose (70-110) mg/dL POC Glucose (mg/dL) 204 H 184 H 124 H (70-110) mg/dL Microbiology - Last 24 Hours (Table) 06/28/22 06:10 Urine Culture - Final Urine,Catheterized Assessment and Plan Assessment: 1. Left hip osteoarthritis - Postoperative day 3 status post left total hip arthroplasty Plan: 1. Left hip osteoarthritis - left total hip arthroplasty performed 06/27/2022. patient at bedside this morning. Continue with PT/OT daily. Discharge to [facility] today. 2. Appreciate medical management 3. Pain management - [place] 5mg/325mg 4. DVT prophylaxis - Xarelto in hospital; Going to rehab with Eliquis 2.5 mg BID x 2 weeks 5. GI prophylaxis - senna; milk of magnesia 6. PT/OT - weightbearing as tolerated with walker and assistance 7. Encourage incentive spirometer use 8. Discharge planning - [facility] today Time with Patient: Less than 30
[2022-06-30 11:04] LABS: Basophils # (A) 0.05 X 10*3/uL (0.00-0.10); Basophils % (A) 0.5 %; Eosinophils % (A) 3.7 %; Immature Grans, Automated 0.7 %; Lymphocytes # (A) 2.39 X 10*3/uL (0.90-5.00); MCH 29.5 pg (27.0-32.0); MCHC 32.4 g/dL (32.0-37.0); MCV 91.2 fL (80.0-97.0); Mean Platelet Volume 10.6 fL (9.5-12.2); Monocytes # (A) 1.03 X 10*3/uL (0.20-1.00); Monocytes % (A) 9.5 %; NRBC Per 100 WBC 0 /100 WBCS (0.0-0.0); Neutrophils # (A) 6.93 X 10*3/uL (1.80-7.70); Neutrophils % (A) 63.6 %; Platelet Count 193 X 10*3/uL (140-440); RBC 3.73 X 10*6/uL (4.10-5.20); RDW 13.7 % (11.5-14.5); WBC 10.88 X 10*3/uL (4.50-10.00)
[2022-06-30 11:06] LABS: African American GFR (CKD) 105.5 (60.0-200.0); Anion Gap 7.9 mmol/L (10.00-18.00); BUN/Creat Ratio 22.33 Ratio (12.00-20.00); Blood Urea Nitrogen 13.4 mg/dL (9.0-27.0); Calcium 8.7 mg/dL (8.7-10.3); Carbon Dioxide 26.1 mmol/L (20.0-27.5); Non-African American GFR(CKD) 91.1 (60.0-200.0)
[2022-06-30 12:18] LABS: Glucose,Whole Blood 119 mg/dL (70-110)
[2022-06-30 12:39] VITALS: PULSE 80
--- NOTE | 2022-06-30 12:46 | US ---
EXAMINATION TYPE: US venous doppler duplex LE LT DATE OF EXAM: 06/30/2022 12:38 PM COMPARISON: NONE CLINICAL INDICATION: Female, 72 years old with history of DVT; Swelling post total hip. SIDE PERFORMED: Left TECHNIQUE: The lower extremity deep venous system is examined utilizing real time linear array sonog koffi with graded compression, doppler sonography and color-flow sonography. VESSELS IMAGED: Common Femoral Vein Deep Femoral Vein Greater Saphenous Vein * Femoral Vein Popliteal Vein Small Saphenous Vein * Proximal Calf Veins (* superficial vessels) Grayscale, color doppler, spectral doppler imaging performed of the deep veins of the left lower extr emity. There is normal flow, compressibility, vascular waveforms. Left Leg: Negative for DVT IMPRESSION: No ultrasound evidence for deep venous thrombosis of the left lower extremity.
--- NOTE | 2022-06-30 14:52 | P.PN ---
Subjective Progress Note Date: 06/30/22 This is a 72-year-old female who was admitted under orthopedic services status post left total hip arthroplasty with concerns of possible acute urinary tract infection. Patient did receive IV ceftriaxone for a few days and urine culture finalized showing no growth and will discontinue. Patient also having some confusion most likely narcotic effect in addition to patient was taking large dose Seroquel and Xanax at night. Patient had been receiving IV Dilaudid and at bedside reports she is more confused with opioid use. Recommend using other alternatives for pain other than narcotics and sedative agents. Patient is reporting some increased left lower extremity pain and calf pain and ordered venous Doppler of the left lower extremity which was negative for DVT. Patient is maintained on eliquis and will continue outpatient. Patient with significant weakness and slow to progress agreeable to go to rehab and plans on going to [place] today. Patient is currently afebrile no reports of chest pain or shortness of breath and tolerating diet. Patient continues to report pain and difficulty with ambulation. reports she did get up more frequently yesterday afternoon into today and she has most recently. Patient is medically stable for transfer to [facility] today. Encourage outpatient follow-up with primary care provider Review of systems: Constitutional: No reports of fatigue, fever, or chills Cardiovascular: No reports of chest pain or palpitations Respiratory: No reports of shortness of breath or cough GI: No reports of nausea, no reports of vomiting, reports passing gas but did not have a bowel movement : No reports of dysuria or retention Neurovascular: reports of generalized weakness and continued left hip pain All medications have been reviewed PHYSICAL EXAMINATION: GENERAL: The patient is alert and oriented x3, Well developed, well nourished. HEENT: Pupils are round and equally reacting to light. EOMI. no scleral icterus. No conjunctival pallor. Normocephalic, atraumatic. No pharyngeal erythema. No thyromegaly. CARDIOVASCULAR: S1 and S2 muffled PULMONARY: diminished breath sounds bilaterally with no wheezing or rhonchi noted. ABDOMEN: soft. Nontender on exam. obese. non-distended, normoactive bowel sounds. No palpable organomegaly. MUSCULOSKELETAL: No joint swelling or deformity. EXTREMITIES: No cyanosis, clubbing, or pedal edema. NEUROLOGICAL: Gross neurological examination did not reveal any focal deficits. Diffuse weakness SKIN: No rashes. Assessment: Status post left total hip arthroplasty Acute urinary tract infection, present on admission, ruled out, cultures were negative Acute atelectasis of the right lung Diabetes mellitus, type II Hypertension History of recurrent UTIs and has been on Macrobid as preventative measures over the last 3 months History of anxiety GI prophylaxis DVT prophylaxis Full code Plan: Recommend to continue with current medications and management per orthopedic services. Patient has been seen and evaluated by physical therapy and working with them daily and slow to progress continues with significant weakness and uncontrolled pain is agreeable to rehab and will be going to [place] today. Patient with concerns of urinary tract infection although urine cultures were negative and patient has received IV ceftriaxone for a few days and will not require antibiotics on discharge. Patient instructed to follow-up with primary care provider as reports she is on Macrobid daily as a preventative measure and will discontinue for now Encouraged incentive spirometer use at least 10 times every hour while awake Encouraged increased activity as tolerated and elevating left lower extremity well at rest Patient is diabetic and would recommend monitoring Accu-Cheks before meals and at bedtime Thank you kindly for this consultation. We will continue to follow with orth opedics during hospitalization The impression and plan of care has been dictated by Jennifer Interiano, nurse practitioner as directed. Dr. Sj MD I have performed a history and examination and MDM of this patient, discussed the same with the dictator, and agree with the dictator's assessment and plan as written ,documented as a scribe. Based on total visit time, I have performed more than 50% of the visit. Any additional findings or plans will be noted. Objective - Vital Signs Vital signs: Vital Signs Temp 99 F 06/30/22 07:01 Pulse 84 06/30/22 09:24 Resp 16 06/30/22 07:01 BP 145/78 06/30/22 07:01 Pulse Ox 94 L 06/30/22 07:01 FiO2 Intake & Output 06/29/22 06/30/22 06/30/22 18:59 06:59 18:59 Output Total 250 Balance -250 Output: Urine 250 Other: Voiding Method Bedside Commode # Voids 1 - Labs CBC & Chem 7: 06/30/22 06:39 06/30/22 06:39 Labs: Abnormal Lab Results - Last 24 Hours (Table) 06/29/22 06/29/22 06/29/22 Range/Units 04:23 04:23 11:21 WBC 10.14 H (4.50-10.00) X 10*3/uL RBC 3.57 L (4.10-5.20) X 10*6/uL Hgb 10.5 L (12.0-15.0) g/dL Hct 32.3 L (37.2-46.3) % Immature Gran # 0.09 H (0.00-0.04) X 10*3/uL Monocytes # 1.19 H (0.20-1.00) X 10*3/uL Anion Gap 9.90 L (10.00-18.00) mmol/L Est GFR (CKD-EPI)AfAm 56.2 L (60.0-200.0) Est GFR (CKD-EPI)NonAf 48.5 L (60.0-200.0) Glucose 168 H (70-110) mg/dL POC Glucose (mg/dL) 157 H (70-110) mg/dL 06/29/22 06/29/22 06/30/22 Range/Units 16:53 20:32 06:13 WBC (4.50-10.00) X 10*3/uL RBC (4.10-5.20) X 10*6/uL Hgb (12.0-15.0) g/dL Hct (37.2-46.3) % Immature Gran # (0.00-0.04) X 10*3/uL Monocytes # (0.20-1.00) X 10*3/uL Anion Gap (10.00-18.00) mmol/L Est GFR (CKD-EPI)AfAm (60.0-200.0) Est GFR (CKD-EPI)NonAf (60.0-200.0) Glucose (70-110) mg/dL POC Glucose (mg/dL) 204 H 184 H 124 H (70-110) mg/dL Microbiology - Last 24 Hours (Table) 06/28/22 06:10 Urine Culture - Final Urine,Catheterized
== END 2022-06-30 13:45 | DRG 470 ==
LOC: OR 05:58 → 4SSUR 09:26 → OR 10:01 → OBSVTOIN 06-30 08:09
PROVIDERS: ADMIT Orthopaedic Surgery; ATTEND Orthopaedic Surgery
PROC: 0SRB04A Replacement of Left Hip Joint with Ceramic on Polyethylene Synthetic Substitute, Uncemented, Open Approach (ICD-10-PCS; principal; 2022-06-27 07:45)
DX: M16.12 Unilateral primary osteoarthritis, left hip (principal); J98.11 Atelectasis; N39.0 Urinary tract infection, site not specified; E11.9 Type 2 diabetes mellitus without complications; F41.9 Anxiety disorder, unspecified; H91.90 Unspecified hearing loss, unspecified ear; I10 Essential (primary) hypertension; R09.02 Hypoxemia; G43.909 Migraine, unspecified, not intractable, without status migrainosus; G89.29 Other chronic pain; Z96.89 Presence of other specified functional implants; M54.50 Low back pain, unspecified; K59.00 Constipation, unspecified; Z88.8 Allergy status to other drugs, medicaments and biological substances; Z88.5 Allergy status to narcotic agent; Z91.013 Allergy to seafood; Z79.82 Long term (current) use of aspirin; Z79.4 Long term (current) use of insulin; Z79.899 Other long term (current) drug therapy; Z87.442 Personal history of urinary calculi; Z96.652 Presence of left artificial knee joint; Z87.440 Personal history of urinary (tract) infections
CPT/HCPCS: 64447; 71045; 73501; 80048; 80053; 81001; 84132; 85025; 86850; 86900; 86901; 87086; 87635; 88300; 94640

== ENCOUNTER → 2023-11-01 | Outpatient (CLI) | payer MEDICARE | END | disposition home or self-care (01) | LOC: LABPAT 13:46 | PROVIDERS: ATTEND Orthopaedic Surgery | DX: M17.11 Unilateral primary osteoarthritis, right knee (principal) | CPT/HCPCS: 87070 ==

== ENCOUNTER 2023-11-20 10:41 | Observation (INO) | payer MEDICARE ==
--- NOTE | 2023-11-19 08:45 | P.HPOR ---
History of Present Illness H&P Date: 11/19/23 Chief Complaint: Right knee pain The patient is a 73-year-old retired female who presents with progressive right knee pain for the past year worsening with past several months. She notes pain and stiffness with weightbearing activities. She's tried injections along with medications without much relief. She does use a cane. Review of Systems Per HPI Past Medical History Past Medical History: Diabetes Mellitus, GERD/Reflux, Hearing Disorder / Deafness, Hypertension Additional Past Medical History / Comment(s): Migraines. Hx kidney stones. [place], no hearing aids; Hx chronic, severe UTI's, on antibiotic for prevention. History of Any Multi-Drug Resistant Organisms: None Reported Past Surgical History: Appendectomy, Cholecystectomy, Hysterectomy, Joint Replacement Additional Past Surgical History / Comment(s): Procedure for kidney stones, D&C for miscarriage, pain pump placed & removed, left hip replacement Past Anesthesia/Blood Transfusion Reactions: Postoperative Nausea & Vomiting (PONV) Smoking Status: Never smoker - Past Family History Sister(s) Family Medical History: Cancer Additional Family Medical History / Comment(s): Another sister had ALS. Son(s) Family Medical History: Deep Vein Thrombosis (DVT) Medications and Allergies Home Medications Medication Instructions Recorded Confirmed Type Acetaminophen [Tylenol] 325 - 650 mg PO Q4H PRN 06/23/22 11/12/23 History DULoxetine HCL [Cymbalta] 120 mg PO HS 06/23/22 11/12/23 History Insulin Glargine,Hum.rec.anlog 50 units SQ HS 06/23/22 11/12/23 History [Lantus Solostar Pen] Propranolol HCl [Inderal] 60 mg PO HS 06/23/22 11/12/23 History oxyBUTYnin chloride 5 mg PO HS 06/23/22 11/12/23 History Losartan [Cozaar] 25 mg PO HS 11/12/23 11/12/23 History Nitrofurantoin Macrocrystal 50 mg PO HS 11/12/23 11/12/23 History [Macrodantin] QUEtiapine [SEROquel] 100 mg PO HS 11/12/23 11/12/23 History Semaglutide [Ozempic] 2 mg SQ MO 11/12/23 11/12/23 History Allergies Allergy/AdvReac Type Severity Reaction Status Date / Time iodine Allergy Dyspnea Verified 11/12/23 13:29 shellfish derived [Shellfish] Allergy Dyspnea Verified 11/12/23 13:29 morphine AdvReac Hallucinati Verified 11/12/23 13:29 ons Steroids AdvReac Causes Uncoded 11/12/23 13:29 UTI's Physical Examination - Knee right Appearance: effusion Effusion grade: grade 1 Tenderness with palpation: anterior, medial Pain: throughout ROM Gait: limping ROM: extension: -10 degrees ROM: flexion: 100 degrees Crepitus with motion: Yes Strength: extension: 5/5 Strength: flexion: 5/5 Meniscal tests: medial meniscal tests: positive, medial joint line pain: positive Results The patient is a well-developed well-nourished female proximal 5 foot 3, 174 pounds of endomorphic habitus. HEENT exam is nonfocal, neck is supple. She has painless passive motion of the right hip. Straight leg raise is negative. She's tender about the medial joint line of the right knee. Collaterals are stable, Donaldo is negative, Tayo's is equivocal. She has genu varum alignment. She has an antalgic gait pattern. Her distal neurovascular appears intact in the right lower extremity. - Diagnostic results Knee x-ray: image reviewed (X-rays of the right knee obtained show severe medial and patellofemoral compartment osteoarthrosis.) Assessment and Plan Assessment: Right knee severe medial and patellofemoral compartment osteoarthrosis Plan: I talked to the patient at length regarding her condition along with treatment options. This point she is quite symptomatic and limited because of right knee osteoarthrosis despite conservative measures. After a thorough discussion she opts to proceed with surgery. We will plan to proceed with right total knee arthroplasty. Risks and benefits were discussed at length in layman's terms. We will institute DVT from postoperatively.
[~2023-11-20 10:41] MED LIST changes: -ACETAMINOPHEN TAB 500 MG TAB PO PRN; +HYDROmorphone 0.5 MG/0.5 ML SYRINGE IVP PRN; +LIDOCAINE 1% (10MG/ML) FOR IV START INTRADERMA PRN; -MELOXICAM 7.5 MG TAB PO PRN; +TRANEXAMIC 1,000 MG/100ML-NACL 1,000 MG in SALINE 1 100ML.BAG IVPB PRN; -TRANEXAMIC ACID IN NACL,ISO-OS 1,000 MG in SALINE 1 100ML.BAG IVPB PRN; +fentaNYL (PF) 50 MCG/ML 2 ML AMP IVP PRN
[2023-11-20] MEDS: ONDANSETRON 4 MG/2 ML VIAL IVP ONE (10:59)
[2023-11-20] MEDS: ACETAMINOPHEN TAB 500 MG TAB PO PRN (10:59)
[2023-11-20] MEDS: MELOXICAM 7.5 MG TAB PO PRN (10:59)
[2023-11-20 11:05] LABS: Glucose,Whole Blood 153 mg/dL (70-110)
[2023-11-20] MEDS: IV FLUID CONTINUATION 1,000 ML IV ONE (11:07)
[2023-11-20] MEDS: LACTATED RINGERS 1,000 ML IV SCH (11:17)
[2023-11-20] MEDS: MIDAZOLAM 2 MG/2 ML VIAL IV PRN (11:28)
[2023-11-20] MEDS ORDERED: ROPIVACAINE 5 MG/ML 30 ML VIAL ONE (11:44)
[2023-11-20] MEDS ORDERED: TRANEXAMIC 1,000 MG/100ML-NACL PREMIX BAG ONE (11:44)
[2023-11-20] MEDS ORDERED: PROPOFOL 10 MG/ML 20 ML VIAL IV ONE (11:44)
[2023-11-20] MEDS ORDERED: PHENYLEPHRINE 10 MG/ML VIAL ONE (11:44)
[2023-11-20] MEDS: ceFAZolin 1,000 MG in SODIUM CHLORIDE 0.9% 1,000 ML IRRIGATION ONE (12:14)
--- NOTE | 2023-11-20 12:21 | P.ANPRN ---
Procedure Note - Anesthesia - Nerve Block Performed Right Adductor Canal Infusion Time Out Performed: Yes Date of Procedure: 11/20/23 Procedure Start Time: 11:28 Procedure Stop Time: 11:37 Location of Patient: PreOp Indication: Acute Post-Operative Pain, Requested by Surgeon Sedation Type: Sedate with meaningful contact maintained Preparation: Sterile Prep Position: Supine Catheter: Indwelling Needle Types: Pajunk Needle Gauge: 21 Ultrasound used to visualize needle placement: Yes Ultrasound used to observe medication spread: Yes Blood Aspirated: No Pain Paresthesia on Injection Noted: No Resistance on Injection: Normal Image Stored and Saved: Yes Events: Uneventful and Well Tolerated (ropi .5% 20cc plus dexamethasone 4mg)
--- NOTE | 2023-11-20 12:23 | P.ANPRN ---
Procedure Note - Anesthesia - Nerve Block Performed Right [place] Single Time Out Performed: Yes Date of Procedure: 11/20/23 Procedure Start Time: 10:38 Procedure Stop Time: 10:40 Location of Patient: PreOp Indication: Acute Post-Operative Pain, Requested by Surgeon Sedation Type: Sedate with meaningful contact maintained Preparation: Sterile Prep Position: Supine Needle Types: Pajunk Needle Gauge: 21 Ultrasound used to visualize needle placement: Yes Ultrasound used to observe medication spread: Yes Blood Aspirated: No Pain Paresthesia on Injection Noted: No Resistance on Injection: Normal Image Stored and Saved: Yes Events: Uneventful and Well Tolerated (Ropivacaine 0.5% 20 cc)
[2023-11-20] MEDS: LACTATED RINGERS 1,000 ML IV ONE (12:52)
[2023-11-20] MEDS ORDERED: HYDROmorphone 0.5 MG/0.5 ML SYRINGE IVP PRN (13:27)
[2023-11-20] MEDS ORDERED: NALOXONE 0.4 MG/ML 1 ML VIAL IV PRN (13:27)
[2023-11-20] MEDS ORDERED: MAGNESIUM HYDROXIDE 2,400 MG/30 ML CUP PO PRN (13:27)
[2023-11-20] MEDS ORDERED: HYDROcodone/APAP 5-325MG 1 EACH TAB PO PRN (13:27)
--- NOTE | 2023-11-20 13:53 | P.OP ---
Date of Procedure: 11/20/23 Preoperative Diagnosis: Right knee severe tricompartmental osteoarthrosis Postoperative Diagnosis: Same Procedure(s) Performed: Right total knee arthroplastycementedcruciate retaining Implants: [employer] journey 2 size 5 cemented femoral component, size 4 cemented tibial component, 10 mm articular surface, 29 mm cemented patellar component. This is a cruciate retaining implant. Anesthesia: regional, spinal Surgeon: Jimenez Rubio Survey Manager #1: Emigdio Parish Estimated Blood Loss (ml): 50 Pathology: none sent Condition: stable Disposition: PACU Indications for Procedure: The patient is a 73-year-old female who presents with progressive right knee pain secondary to osteoarthrosis despite conservative measures. A discussion of the risks and benefits of operative intervention versus continued conservative measures was made with the patient. She opted to proceed with surgery. Operative risks include infection, neurovascular injury, development of blood clots, fracture, possible component loosening/failure and possible need for subsequent procedures was discussed. Informed consent was obtained. Operative Findings: As below Description of Procedure: The patient was brought to the operating room, and after induction of spinal anesthesia the right lower extremity was prepped and draped in a normal fashion. The tourniquet was inflated to 270 mmHg. A longitudinal incision extending 3 finger breaths above the superior pole of the patella extending to the medial aspect the tibial tubercle was then made. The skin and subcutaneous tissues were divided sharply. Electrocautery was used for hemostasis. A medial parapatellar arthrotomy was then performed. The medial soft tissues to include the superficial and deep portions of the medial collateral ligament as well as the medial hamstring tendons were elevated subperiosteally. The proximal medial tibia osteophytes were carefully removed. The patella was everted. The knee was flexed. A portion of the retropatellar fat pad was excised sharply. The anterior cruciate ligament was sacrificed. A starting hole was made in the distal femur 1 cm anterior to the posterior cruciate origin. An intramedullary femoral guide was gently inserted planning on 5 valgus distal cut with 9 mm distal resection. The cutting block was pinned in place. The distal cut was then made. The posterior referencing sizing guide was utilized. 3 of external rotation was built into the system and verified off the trans- epicondylar axis and the posterior condyles. I felt size 5 was most appropriate. The cutting block was pinned in place. The anterior, posterior, and chamfer cuts were then made. The bone fragments were removed. A sulcus cut was then made with the appropriate guide. The trial size 5 femoral component was then placed and was fully seated. There was good anterior to posterior and medial to lateral fit. The distal peg holes were then drilled. The trial component was then removed. Attention was then paid towards preparing the proximal tibia. An extra medullary guide was utilized in line with the tibial shaft and second metatarsal distally. A 7 posterior slope was planned. I planned on 2 mm resection from the medial compartment. The cutting block was pinned in place. The proximal tibial cut was then made. The bone was removed in one fragment. The remnants of the medial and lateral menisci were excised the capsule junction with electrocautery. The tibia sized most appropriately at size 4. The posterior osteophytes off the distal femur were carefully removed with a curved osteotome. The trial tibial and femoral components were placed along with a 10 millimeters articular surface. I was able to obtain full flexion and extension with good stability with varus and valgus stress. After several flexion and extension cycles, the tibial rotation was marked with electrocautery in line with the medial one third of the tibial tubercle. Attention was then paid towards preparing the patella. A patella reamer was utilized taking this down to 14 mm of bone stock. A good flush cut was made. The patella sized most appropriately at 29 millimeters. The peg holes were then drilled. The trial component was placed. The knee was taken through a range of motion. I had good patellofemoral tracking with no hands technique. The trial components were then removed. The tibia was prepared in the appropriate rotation with appropriate drill and keel punch. The flexion and extension gaps were checked and felt to be symmetric. The bony surfaces were prepared with pulsatile lavage and dried. The deep tibial component was then cemented in place and was fully seated. Excess cement was removed. The femoral component was cemented in place and was fully seated. Again excess cement was removed. The trial 10 millimeters surface was then inserted in the knee was put in full extension. The patella component was cemented in place. After the cement had s ufficiently hardened, the knee was again taken through a range of motion. Again there was good stability in flexion and extension with varus and valgus stress. The trial articular surface was then removed. The final articular surface was placed and was impacted. Care was taken to avoid any soft tissue interposition. Pulsatile lavage was again utilized. The tourniquet was deflated with appro ximately 60 minutes total tourniquet time. There was minimal drainage therefore a deep drain was not placed. The medial parapatellar arthrotomy was then closed with #2 Ethibond suture. The subcutaneous tissues were reapproximated with interrupted 2-0 Vicryl sutures. The skin was reapproximated with 3-0 subarticular strata fix suture. Skin tape and adhesive was applied. A sterile dressing was applied. The patient was then awoken from sedation and transferred to recovery room in good condition. Blood loss was estimated at 50 milliliters. No complications were incurred. Sponge and needle counts were correct at the end the case. Emigdio CHOW assisted during the major components this case to include exposure, bone resection, and implantation.
[2023-11-20] MEDS: ROPIVACAINE 1,100 MG, SODIUM CHLORIDE 0.9% 500 ML 330 ML, EMPTY PAIN BALL 1 EACH MISCELLANE PRN (14:17)
[2023-11-20] MEDS: droPERidol 5 MG/2 ML VIAL IVP ONE (14:19)
--- NOTE | 2023-11-20 14:25 | XR ---
EXAMINATION TYPE: XR knee limited RT DATE OF EXAM: 11/20/2023 CLINICAL HISTORY: Postoperative evaluation Two views of the right knee are submitted. Identified are changes of total knee arthroplasty with femoral and tibial components appearing well seated. Postsurgical soft tissue changes are noted. Alignment is anatomic. [facility], , 11/20/2023 2:22 PM
[2023-11-20] MEDS: DEXAMETHASONE SOD PHOSPHATE 4 MG/ML 1 ML VIAL IV ONE (16:11)
[2023-11-20] MEDS ORDERED: DEXTROSE 50% SYRINGE 50 ML IVP PRN ×2 (16:37)
[2023-11-20 16:46] LABS: Glucose,Whole Blood 94 mg/dL (70-110)
[2023-11-20] MEDS: INSULIN ASPART (NovoLOG) 100 UNIT/ML VIAL SQ SCH (17:15)
[2023-11-20] MEDS: HYDROcodone/APAP 7.5-325MG 1 EACH TAB PO PRN (18:07)
--- NOTE | 2023-11-20 18:07 | P.CONS ---
History of Present Illness - Reason for Consult Consult date: 11/20/23 Medical Management Requesting physician: Jimenez Rubio - History of Present Illness History of Presenting Illness: Patient is a very pleasant 73-year-old female with a past medical history of insulin-dependent diabetes mellitus, hypertension, GERD, and osteoarthrosis. She is currently admitted under orthopedic surgery team status post elective right total knee arthroplasty cemented with cruciate retaining. Surgical procedure was completed secondary to right knee severe tricompartmental osteoarthrosis and was completed by Dr. Rubio. We were consulted for medical management throughout hospitalization. Patient seen and fully evaluated in room 455. She currently reports experiencing only mild postoperative pain stating she is only starting to feel a light throbbing sensation. She denies having any postoperative nausea or vomiting and tolerating eating dinner well at this time. She denies having any headache, lightheadedness, dizziness, chest pain, palpitations, shortness of breath, nausea, vomiting, or experiencing any numbness/tingling in her extremities. Review of systems: Pertinent positives and negatives as discussed in HPI, a complete review of systems was performed and all other systems are negative. Physical exam: Vital signs reviewed and stable. General: Nontoxic, no distress and appears stated age. Derm: Skin warm and dry, normal coloration for ethnicity. Head: Atraumatic, normocephalic and symmetric. Eyes: EOM's intact, no lid lag, and anicteric sclera Mouth: no lip lesions, mucus membranes moist Cardiovascular: regular rate and rhythm with normal S1S2, no murmur, positive posterior tibial pulses bilaterally, and cap refill < 2 seconds. Lungs: Respirations even, regular, and unlabored on room air. Lungs CTA bilaterally, no rhonchi, no rales, no wheezing, and no accessory muscle usage. Abdominal: soft, nontender to palpation, no guarding, no appreciable organomegaly Ext:. No gross muscle atrophy, no edema, no contractures movement and sensation intact. Postoperative dressing/Ruben wrap in place to right knee. Neuro: Speech clear, face symmetrical and CN II-XII grossly intact with no noted focal neuro deficits Psych: Alert and oriented to person, place, time, and situation. Appropriate and pleasant affect. Assessment and Plan of Care: Status post right total knee arthroplasty Management per primary admitting orthopedic surgery team including DVT prophylaxis, pain management, wound/dressing management, weightbearing, and PT/OT. Currently DVT prophylaxis with Xarelto along with IVETTE ferrari and MIGUEs. Insulin-dependent diabetes mellitus Hold Ozempic and patient to continue with Lantus 50 units nightly and placed on glycemic protocol with NovoLog sliding scale. Hypertension Continue daily medication regimen with propranolol 60 mg nightly and losartan 25 mg nightly. Anxiety and depression Continue daily medication regimen with duloxetine 120 mg nightly and Seroquel 100 mg nightly. Data and imaging reviewed: Reviewed operative report. Vital signs reviewed. Blood pressure 158/62, heart rate 62, respiratory rate 16, and SpO2 of 98% on 2 L Thank you for allowing us to participate in the care of this pleasant patient. Do not hesitate to contact us with questions. Someone can be reached from the [facility] hospitalist group all hours of the day at [phone] or via [employer]. Patient was seen independently by Nurse Practitioner. This document was prepared using [employer] dictation software. Please allow for errors in cage maker while rare they do occur. Hilario Dominguez NP rendered care for this patient independently, reviewed the findings and plan as documented in the note above. I did not physically speak with or examine the patient on this date. Past Medical History Past Medical History: Diabetes Mellitus, GERD/Reflux, Hearing Disorder / De afness, Hypertension Additional Past Medical History / Comment(s): Migraines. Hx kidney stones. [place], no hearing aids; Hx chronic, severe UTI's, on antibiotic for prevention. History of Any Multi-Drug Resistant Organisms: None Reported Past Surgical History: Appendectomy, Cholecystectomy, Hysterectomy, Joint Replacement Additional Past Surgical History / Comment(s): Procedure for kidney stones, D&C for miscarriage, pain pump placed & removed, left hip replacement Past Anesthesia/Blood Transfusion Reactions: Postoperative Nausea & Vomiting (PONV) Smoking Status: Never smoker - Past Family History Sister(s) Family Medical History: Cancer Additional Family Medical History / Comment(s): Another sister had ALS. Son(s) Family Medical History: Deep Vein Thrombosis (DVT) Medications and Allergies Home Medications Medication Instructions Recorded Confirmed Type Acetaminophen [Tylenol] 325 - 650 mg PO Q4H PRN 06/23/22 11/12/23 History DULoxetine HCL [Cymbalta] 120 mg PO HS 06/23/22 11/20/23 History Insulin Glargine,Hum.rec.anlog 50 units SQ HS 06/23/22 11/20/23 History [Lantus Solostar Pen] Propranolol HCl [Inderal] 60 mg PO HS 06/23/22 11/20/23 History oxyBUTYnin chloride 5 mg PO HS 06/23/22 11/20/23 History Losartan [Cozaar] 25 mg PO HS 11/12/23 11/20/23 History Nitrofurantoin Macrocrystal 50 mg PO HS 11/12/23 11/20/23 History [Macrodantin] QUEtiapine [SEROquel] 100 mg PO HS 11/12/23 11/20/23 History Semaglutide [Ozempic] 2 mg SQ MO 11/12/23 11/12/23 History Apixaban [Eliquis] 2.5 mg PO BID #60 tab 11/22/23 Rx HYDROcodone/APAP 7.5-325MG [[place] 1 - 2 each PO Q6HR PRN #32 tab 11/22/23 Rx 7.5] Sennosides/Docusate Sodium [Senna 1 each PO DAILY #20 capsule 11/22/23 Rx Plus 8.6-50 mg Softgel] Allergies Allergy/AdvReac Type Severity Reaction Status Date / Time iodine Allergy Dyspnea Verified 11/20/23 10:48 shellfish derived [Shellfish] Allergy Dyspnea Verified 11/20/23 10:48 morphine AdvReac Hallucinati Verified 11/20/23 10:48 ons Steroids AdvReac Causes Uncoded 11/20/23 10:48 UTI's Physical Exam Vitals: Vital Signs Temp Pulse Pulse Resp BP Pulse Ox 11/20/23 16:05 62 16 158/62 98 11/20/23 15:50 60 16 149/80 98 11/20/23 15:35 63 16 142/78 98 11/20/23 15:20 62 16 140/72 98 11/20/23 15:05 59 L 16 122/70 98 11/20/23 14:50 59 L 16 119/69 97 11/20/23 14:35 71 16 117/63 98 11/20/23 14:20 64 16 128/64 97 11/20/23 14:05 60 16 116/57 100 11/20/23 13:50 97 F L 66 12 141/61 95 11/20/23 11:42 74 16 124/62 97 11/20/23 10:49 97.0 F L 74 18 135/81 95 Intake and Output 11/20/23 11/20/23 11/20/23 06:59 14:59 22:59 Intake Total 1351 0 Output Total 50 Balance 1301 0 Intake: IV 1351 0 Output: Estimated Blood Loss 50 Other: Weight 87.2 kg Results CBC & Chem 7: 11/21/23 02:47 11/21/23 02:47 Labs: Abnormal Lab Results - Last 24 Hours (Table) 11/20/23 Range/Units 11:04 POC Glucose (mg/dL) 153 H (70-110) mg/dL
[2023-11-20 21:04] LABS: Glucose,Whole Blood 109 mg/dL (70-110)
[2023-11-20] MEDS: HYDROmorphone 0.5 MG/0.5 ML SYRINGE IVP PRN (21:05)
[2023-11-20] MEDS: PROPRANOLOL 20 MG TAB PO SCH (21:06)
[2023-11-20] MEDS: QUEtiapine 100 MG TAB PO SCH (21:07)
[2023-11-20] MEDS: DULoxetine HCL 60 MG CAPSULE.DR PO SCH (21:07)
[2023-11-20] MEDS: oxyBUTYnin chloride 5 MG TAB PO SCH (21:07)
[2023-11-20] MEDS: INSULIN DETEMIR (LEVEMIR) 100 UNIT/ML SYR SQ SCH (21:07)
[2023-11-20] MEDS: SENNOSIDES-DOCUSATE SODIUM 1 EACH TAB PO SCH (21:07)
[2023-11-20] MEDS: NITROFURANTOIN MONOHYD/M-CRYST 100 MG CAP PO SCH (21:07)
[2023-11-20] MEDS: LOSARTAN 25 MG TAB PO SCH (21:07)
[2023-11-21] MEDS: ONDANSETRON 4 MG/2 ML VIAL IVP PRN (04:59)
[2023-11-21 06:26] LABS: Glucose,Whole Blood 176 mg/dL (70-110)
--- NOTE | 2023-11-21 06:54 | P.PN ---
Progress Note - Text Progress Note Date: 11/21/23 patient was seen and evaluated at bedside. Status post postoperative day 1 for Right total knee arthroplasty patient had adductor canal catheter for postop pain control. Patient rated pain at rest 3-4 out of 10 in severity. Patient describes pain is aching, throbbing type on the sides of the knee and back of the knee. Patient started walking with support. With activity patient pain levels are 5-6 out of 10 in severity. With the help of oral pain medications pain levels are tolerable. Patient denied any weakness/ numbness in lower extremities. patient denied any fever, pain over the catheter site. Physical exam: Patient vital signs stable Patient is alert awake oriented 3 responding to all questions appropriately Examination of the catheter site showed dressing intact, no leaking fluid around the catheter, no redness, no tenderness over the catheter insertion area. plan: status post postoperative day 1 for right total knee arthroplasty with adductor canal catheter for pain control. Patient was discussed to continue the medication at the rate of 8 mL per hour until the pump is completely empty and instructed the patient how to discontinue the catheter.
[2023-11-21 08:53] LABS: Basophils # (A) 0.04 X 10*3/uL (0.00-0.10); Basophils % (A) 0.5 %; Eosinophils % (A) 2.3 %; HCT 40.6 % (37.2-46.3); Lymphocytes # (A) 1.68 X 10*3/uL (0.90-5.00); Lymphocytes % (A) 19.3 %; MCV 90.4 FL (80.0-97.0); Mean Platelet Volume 11.2 FL (9.5-12.2); Monocytes # (A) 0.71 X 10*3/uL (0.20-1.00); Monocytes % (A) 8.2 %; NRBC Per 100 WBC 0 X 10*3/uL (0.00-0.01); Neutrophils # (A) 6.01 X 10*3/uL (1.80-7.70); Platelet Count 193 X 10*3/uL (140-440); RBC 4.49 X 10*6/uL (4.10-5.20); RDW 13.2 % (11.5-14.5)
[2023-11-21 08:59] LABS: BUN/Creat Ratio 15.18 Ratio (12.00-20.00); Blood Urea Nitrogen 16.7 mg/dL (9.0-27.0); Carbon Dioxide 23.4 mmol/L (21.6-31.8); Chloride 103 mmol/L (96-109); Glucose 164 mg/dL (70-110); Potassium 4.3 mmol/L (3.5-5.5); Sodium 136 mmol/L (135-145)
[2023-11-21 09:00] LABS: Calcium 8.6 mg/dL (8.7-10.3); Magnesium 1.6 mg/dL (1.5-2.4)
--- NOTE | 2023-11-21 09:29 | P.PN ---
Subjective Progress Note Date: 11/21/23 Principal diagnosis: Status post right total knee arthroplasty Patient examined today at bedside, she is resting in her hospital chair. Patient was unable to do the stairs today. She does note some increase in pain with ambulation. She is requiring Dilaudid at this time. She has been utilizing the incentive spirometer. She is urinating with no issues. She has no chest pain, shortness of breath, nausea or vomiting. Objective - Vital Signs Vital signs: Vital Signs Temp 98.0 F 11/21/23 07:48 Pulse 67 11/21/23 07:48 Resp 16 11/21/23 07:48 BP 147/77 11/21/23 07:48 Pulse Ox 94 L 11/21/23 07:48 FiO2 Intake & Output 11/20/23 11/21/23 11/21/23 18:59 06:59 18:59 Intake Total 1351 Output Total 50 Balance 1301 Weight 87.2 kg Intake: IV 1351 Output: Estimated Blood Loss 50 Other: Voiding Method Toilet # Voids 1 3 - Exam Right lower extremity: Incision is clean, dry, and intact. The exofin fusion tape is in good condition. There is minimal soft tissue swelling and ecchymosis surrounding the medial and lateral aspects of the incision. Calf is soft, no tenderness with palpation. Plantar flexion, dorsiflexion, EHL, FHL are intact. Sensory exam to light touch throughout the extremity is intact, dorsal pedis pulses 2+. - Labs CBC & Chem 7: 11/21/23 02:47 11/21/23 02:47 Labs: Abnormal Lab Results - Last 24 Hours (Table) 11/20/23 11/21/23 11/21/23 Range/Units 11:04 02:47 02:47 Immature Gran # 0.06 H (0.00-0.04) X 10*3/uL Est GFR (CKD-EPI) 53 L (>=60) Glucose 164 H (70-110) mg/dL POC Glucose (mg/dL) 153 H (70-110) mg/dL Calcium 8.6 L (8.7-10.3) mg/dL 11/21/23 Range/Units 06:25 Immature Gran # (0.00-0.04) X 10*3/uL Est GFR (CKD-EPI) (>=60) Glucose (70-110) mg/dL POC Glucose (mg/dL) 176 H (70-110) mg/dL Calcium (8.7-10.3) mg/dL Assessment and Plan Assessment: Postop day #1 status post right total knee arthroplasty Plan: Pain control, continue current medications DVT prophylaxis, continue current medications Encourage incentive spirometer Icing and elevating techniques discussed Continue with PT/OT Other medical specialty recommendations appreciated Discharge planning: Patient will require 1 additional night in hospital for pain control and working with therapy, hopeful discharge to home with home health care on 11/22/2023
--- NOTE | 2023-11-21 09:55 | P.PN ---
Subjective Progress Note Date: 11/21/23 Hospital course: Patient is a very pleasant 73-year-old female with a past medical history of insulin-dependent diabetes mellitus, hypertension, GERD, and osteoarthrosis. She is currently admitted under orthopedic surgery team status post elective right total knee arthroplasty cemented with cruciate retaining. Surgical procedure was completed secondary to right knee severe tricompartmental osteoarthrosis and was completed by Dr. Rubio. We were consulted for medical management throughout hospitalization. Physical exam: Patient seen and fully evaluated at bedside this morning. She is postoperative day 1. Patient reports having a difficult time with physical therapy this morning secondary to persistent pain. She currently reports pain to right knee moderate pain rating 6 out of 10 at this time. She denies having any numbness/tingling/focal weakness. She denies having any other complaints including headache, lightheadedness, dizziness, chest pain, palpitations, shortness of breath, or experiencing any nausea or vomiting. Vital signs reviewed and stable. General: Nontoxic, no distress and appears stated age. Derm: Skin warm and dry, normal coloration for ethnicity. Head: Atraumatic, normocephalic and symmetric. Eyes: EOM's intact, no lid lag, and anicteric sclera Mouth: no lip lesions, mucus membranes moist Cardiovascular: regular rate and rhythm with normal S1S2, no murmur, positive posterior tibial pulses bilaterally, and cap refill < 2 seconds. Lungs: Respirations even, regular, and unlabored on room air. Lungs CTA bilaterally, no rhonchi, no rales, no wheezing, and no accessory muscle usage. Abdominal: soft, nontender to palpation, no guarding, no appreciable organomegaly Ext:. No gross muscle atrophy, no edema, no contractures movement and sensation intact. Postoperative dressing/Ruben wrap in place to right knee. Neuro: Speech clear, face symmetrical and CN II-XII grossly intact with no noted focal neuro deficits Psych: Alert and oriented to person, place, time, and situation. Appropriate and pleasant affect. Assessment and Plan of Care: Status post right total knee arthroplasty Management per primary admitting orthopedic surgery team including DVT prophy laxis, pain management, wound/dressing management, weightbearing, and PT/OT. Currently DVT prophylaxis with Xarelto along with IVETTE hose and SCDs. Insulin-dependent diabetes mellitus with hyperglycemia Hold Ozempic. Patient to continue with Lantus 50 units nightly and glycemic protocol with NovoLog sliding scale.. Hypomagnesemia Magnesium 1.6. Orders placed for magnesium sulfate 2 g IVPB. Hypertension Continue daily medication regimen with propranolol 60 mg nightly and losartan 25 mg nightly. Anxiety and depression Continue daily medication regimen with duloxetine 120 mg nightly and Seroquel 100 mg nightly. Data and imaging reviewed: Postoperative labs reviewed. CBC unremarkable. BMP normal findings. Blood glucose 164. Magnesium 1.6. Vital signs reviewed. Blood pressure 144/77, heart rate 67, respiratory rate 16, temp 98.0 F, and SpO2 of 94% on room air. Thank you for allowing us to participate in the care of this pleasant patient. Do not hesitate to contact us with questions. Someone can be reached from the [facility] hospitalist group all hours of the day at [phone] or via [employer]. Patient was seen independently by Nurse Practitioner. This document was prepared using [employer] dictation software. Please allow for errors in tile burner while rare they do occur. Hilario Dominguez NP rendered care for this patient independently, reviewed the findings and plan as documented in the note above. I did not physically speak with or examine the patient on this date. Objective - Vital Signs Vital signs: Vital Signs Temp 98.0 F 11/21/23 07:48 Pulse 67 11/21/23 07:48 Resp 16 11/21/23 07:48 BP 147/77 11/21/23 07:48 Pulse Ox 94 L 11/21/23 07:48 FiO2 Intake & Output 11/20/23 11/21/23 11/21/23 18:59 06:59 18:59 Intake Total 1351 Output Total 50 Balance 1301 Weight 87.2 kg Intake: IV 1351 Output: Estimated Blood Loss 50 Other: Voiding Method Toilet # Voids 1 3 - Labs CBC & Chem 7: 11/21/23 02:47 11/21/23 02:47 Labs: Abnormal Lab Results - Last 24 Hours (Table) 11/20/23 11/21/23 Range/Units 11:04 06:25 POC Glucose (mg/dL) 153 H 176 H (70-110) mg/dL
[2023-11-21] MEDS: RIVAROXABAN 10 MG TAB PO SCH (09:59)
[2023-11-21] MEDS: MAGNESIUM SULFATE-D5W PMX 1 GM in DEXTROSE/WATER 1 100ML.BAG IVPB SCH (11:21)
[2023-11-21 11:23] LABS: Glucose,Whole Blood 211 mg/dL (70-110)
[2023-11-21 16:36] LABS: Glucose,Whole Blood 229 mg/dL (70-110)
[2023-11-21] MEDS: hydrOXYzine pamoate 25 MG CAP PO PRN (20:23)
[2023-11-21 22:05] LABS: Glucose,Whole Blood 222 mg/dL (70-110)
[2023-11-22 04:24] VITALS: RESP 17
[2023-11-22 06:22] LABS: Glucose,Whole Blood 162 mg/dL (70-110)
[2023-11-22 07:57] VITALS: BP 138/80; PULSE 81; TEMP 97.3
[2023-11-22] MEDS: CYCLOBENZAPRINE 5 MG TAB PO STA (10:49)
--- NOTE | 2023-11-22 11:31 | P.DS ---
Providers Date of admission: 11/21/23 14:40 Expected date of discharge: 11/22/23 Attending physician: Jimenez Rubio Consults: 11/20/23 13:27 Consult Physician Routine Consulting Provider: Brandee Cali Consult Reason/Comments: medical management s/p right total knee arthroplasty Do you want consulting provider notified?: Yes Primary care physician: Stated None Hospital Course: Date of admission: 11/20/2023 Date of discharge: 11/22/2023 Admission diagnosis: Right knee osteoarthritis Discharge diagnosis: same Attending physician: Dr. Rubio Surgical procedures: Right total knee arthroplasty Brief history: Patient is a 73-year-old female with a history of progressive primary right knee osteoarthritis. At this point patient has failed conservative treatment measures and has opted to proceed with a elective right total knee arthroplasty. Hospital course: Details of patient's surgery can be found in operative report. Patient tolerated the procedure well and was subsequently transported to orthopedic floor. Patient's orthopeidc and medical care was provided daily. Patient had daily laboratory tests performed for evaluation of overall blood counts. Patient had daily physical therapy to include strengthening range of motion as well as education with walker ambulation. Patient was treated with Xarelto for their postoperative DVT prophylaxis during their inpatient stay. Patient was noted to have a relatively uneventful postoperative course. Patient reported satisfactory pain control with oral pain medications by postoperative day 2. Patient showed satisfactory progress with physical therapy. Patient moved steadily through the program and had no difficulty meeting the goals by postoperative day 2. Given patient's otherwise satisfactory course and having met physical therapy goals, plan is to discharge patient home with health services on postoperative day 2. Discharge condition/disposition: Patient will be discharged home with health services in stable condition. Discharge medications: Instructions are given on resumption of patient's normal daily medications per primary care recommendation, in addition patient will be prescribed [place] 7.5 mg/325 mg; senna; Eliquis 2.5 mg twice a day 2 weeks. Discharge instructions: 1. Wound care and infection precautions, keep incision dry and covered while showering, no lotions, creams, moisturizers. No soaking, tubs, pools, hottubs. Do not scrub over the incision. 2. Weight-bear as tolerated with walker / cane until follow-up. 3. Ice and elevate when necessary. Do not exceed 20 minutes per hour with ice pack. 4. Utilize compression sleeve until seen at first follow up appointment. 5. Visiting nursing care. 6. Home physical therapy including home CPM. 7. Pain meds and anticoagulants per prescription. 8. Pain medication has potential to cause constipation. Increase oral fluid and fiber intake. Contact primary care provider if you have not had a bowel movement within 48 hours after discharge 9. No anti-inflammatory medication until discussed at first post operative visit, this including Motrin, Aleve, Mobic, Diclofenac. 10. Follow up in office at 2 weeks postop with Celso Shelley PA-C / Emigdio Parish PA-C 11. Follow up with your primary care doctor 7-10 days after discharge. 12. Contact [facility] with any questions, . Assessment: Right knee osteoarthritis Procedures: Right total knee arthroplasty Patient Condition at Discharge: Good Plan - Discharge Summary Discharge Rx Participant: No New Discharge Prescriptions: New Apixaban [Eliquis] 2.5 mg PO BID #60 tab Sennosides/Docusate Sodium [Senna Plus 8.6-50 mg Softgel] 1 each PO DAILY #20 capsule HYDROcodone/APAP 7.5-325MG [[place] 7.5] 1 - 2 each PO Q6HR PRN #32 tab PRN Reason: Pain No Action DULoxetine HCL [Cymbalta] 120 mg PO HS Acetaminophen [Tylenol] 325 - 650 mg PO Q4H PRN PRN Reason: Pain QUEtiapine [SEROquel] 100 mg PO HS Nitrofurantoin Macrocrystal [Macrodantin] 50 mg PO HS Semaglutide [Ozempic] 2 mg SQ MO Insulin Glargine,Hum.rec.anlog [Lantus Solostar Pen] 50 units SQ HS Propranolol HCl [Inderal] 60 mg PO HS oxyBUTYnin chloride 5 mg PO HS Losartan [Cozaar] 25 mg PO HS Discharge Medication List Acetaminophen [Tylenol] 325 - 650 mg PO Q4H PRN 06/23/22 [History] DULoxetine HCL [Cymbalta] 120 mg PO HS 06/23/22 [History] Insulin Glargine,Hum.rec.anlog [Lantus Solostar Pen] 50 units SQ HS 06/23/22 [History] Propranolol HCl [Inderal] 60 mg PO HS 06/23/22 [History] oxyBUTYnin chloride 5 mg PO HS 06/23/22 [History] Losartan [Cozaar] 25 mg PO HS 11/12/23 [History] Nitrofurantoin Macrocrystal [Macrodantin] 50 mg PO HS 11/12/23 [History] QUEtiapine [SEROquel] 100 mg PO HS 11/12/23 [History] Semaglutide [Ozempic] 2 mg SQ MO 11/12/23 [History] Apixaban [Eliquis] 2.5 mg PO BID #60 tab 11/22/23 [Rx] HYDROcodone/APAP 7.5-325MG [[place] 7.5] 1 - 2 each PO Q6HR PRN #32 tab 11/22/23 [Rx] Sennosides/Docusate Sodium [Senna Plus 8.6-50 mg Softgel] 1 each PO DAILY #20 capsule 11/22/23 [Rx] Follow up Appointment(s)/Referral(s): Emigdio Parish, PAC [PHYSICIAN ETHYLBENZENE CONVERTER OPERATOR] - 12/06/23 9:30 am [facility],Equipment [NON-STAFF] - As Needed (Call [facility] once home to arrange delivery of the Continuous Passive Motion (CPM) machine. ) [facility] [NON-STAFF] - 1-2 Days ([facility] will call you to schedule your in home nursing and physical therapy visits. ) Patient Instructions/Handouts: Knee Replacement (DC), Knee Replacement (GEN) Activity/Diet/Wound Care/Special Instructions: Orthopedic Discharge Instructions: 1. Wound care and infection precautions, keep incision dry and covered while showering, no lotions, creams, moisturizers. No soaking, pools, hot tubs. Do not scrub over incision. 2. Weight-bear as tolerated with walker / cane until follow-up. 3. Ice and elevate when necessary. Do not exceed 20 minutes per hour with ice pack. 4. Utilize compression sleeve until seen at first follow up appointment. 5. Pain meds and anticoagulants per prescription. 6. Pain medication has potential to cause constipation. Increase oral fluid and fiber intake. Contact primary care provider if you have not had a bowel movement within 48 hours after discharge. 7. No anti-inflammatory medication until discussed at first post operative visit, this including Motrin, Aleve, Mobic, Diclofenac. 8. Follow up in office at 2 weeks postop with Celso Shelley PA-C / Emigdio Parish PA-C 9. Follow up with your primary care doctor 7-10 days after discharge. 10. Contact [facility] with any questions, . Keep incision clean, dry, intact. While showering, cover fusion tape with Saran wrap. Keep fusion tape on until follow-up appointment in office in 2 weeks Discharge Disposition: HOME WITH HOME HEALTH SERVICES
--- NOTE | 2023-11-22 11:34 | P.PN ---
Subjective Progress Note Date: 11/22/23 Principal diagnosis: Right knee osteoarthritis Patient was seen at bedside this morning sitting up in chair with legs elevated and dressing present over right knee. Patient says she did do better with therapy this morning and was able to walk up and down steps. She says she does have a walker for home. Patient says she is looking forward to going home later today. Patient says her mobile help her out once she is home. Patient says she has urinated since surgery without issue. Patient says she has not had a bowel movement yet. Patient says she is using incentive spirometer. Patient denies any other issues at this time. Objective - Vital Signs Vital signs: Vital Signs Temp 97.3 F L 11/22/23 06:56 Pulse 81 11/22/23 06:56 Resp 17 11/22/23 06:56 BP 138/80 11/22/23 06:56 Pulse Ox 90 L 11/22/23 06:56 FiO2 Intake & Output 11/21/23 11/22/23 11/22/23 18:59 06:59 18:59 Other: Voiding Method Toilet # Voids 3 3 # Bowel Movements 1 - Exam Right knee: Incision is clean, dry, and intact. The exofin fusion tape is in good condition. There is minimal soft tissue swelling and ecchymosis surrounding the medial and lateral aspects of the incision. Calf is soft, no tenderness with palpation. Plantar flexion, dorsiflexion, EHL, FHL are intact. Sensory exam to light touch throughout the extremity is intact, dorsal pedis pulses 2+. - Labs CBC & Chem 7: 11/21/23 02:47 11/21/23 02:47 Labs: Abnormal Lab Results - Last 24 Hours (Table) 11/21/23 11/21/23 11/21/23 Range/Units 11:22 16:35 22:04 POC Glucose (mg/dL) 211 H 229 H 222 H (70-110) mg/dL 11/22/23 Range/Units 06:18 POC Glucose (mg/dL) 162 H (70-110) mg/dL Assessment and Plan Assessment: Right knee osteoarthritis - Postop day 2 status post right total knee arthroplasty Plan: 1. Right knee osteoarthritis - right total knee arthroplasty performed 11/20/2023. Patient stable at bedside this morning. Patient did do well with therapy this morning. Patient does have a walker for home. Discharge home today with health services. 2. Appreciate medical management 3. Pain management - [place] 4. DVT prophylaxis - Xarelto in hospital. Going home with Eliquis 2.5 mg twice a day 2 weeks 5. GI prophylaxis - senna 6. PT/OT - weightbearing as tolerated with walker 7. Encourage incentive spirometer use 8. Discharge planning - home today with health services Time with Patient: Less than 30
[2023-11-22 11:40] LABS: Glucose,Whole Blood 196 mg/dL (70-110)
--- NOTE | 2023-11-22 12:49 | P.PN ---
Subjective Progress Note Date: 11/22/23 Hospital course: Patient is a very pleasant 73-year-old female with a past medical history of insulin-dependent diabetes mellitus, hypertension, GERD, and osteoarthrosis. She is currently admitted under orthopedic surgery team status post elective right total knee arthroplasty cemented with cruciate retaining. Surgical procedure was completed secondary to right knee severe tricompartmental osteoarthrosis and was completed by Dr. Rubio. We were consulted for medical management throughout hospitalization. Physical exam: Patient seen and fully evaluated at bedside this morning. She is postoperative day 2 and appears to be doing well this morning. Patient seen and evaluated at bedside this morning while working with physical therapy. She reports pain is mild to moderate but controlled with current medication regimen. She denies any other complaints including headache, lightheadedness, dizziness, chest pain, palpitations, shortness of breath, or experiencing any cough or congestion. Patient Vital signs reviewed and stable. General: Nontoxic, no distress and appears stated age. Derm: Skin warm and dry, normal coloration for ethnicity. Head: Atraumatic, normocephalic and symmetric. Eyes: EOM's intact, no lid lag, and anicteric sclera Mouth: no lip lesions, mucus membranes moist Cardiovascular: regular rate and rhythm with normal S1S2, no murmur, positive posterior tibial pulses bilaterally, and cap refill < 2 seconds. Lungs: Respirations even, regular, and unlabored on room air. Lungs CTA bilaterally, no rhonchi, no rales, no wheezing, and no accessory muscle usage. Abdominal: soft, nontender to palpation, no guarding, no appreciable organomegaly Ext:. No gross muscle atrophy, no edema, no contractures movement and sensation intact. Postoperative dressing/Ruben wrap in place to right knee. Neuro: Speech clear, face symmetrical and CN II-XII grossly intact with no noted focal neuro deficits Psych: Alert and oriented to person, place, time, and situation. Appropriate and pleasant affect. Assessment and Plan of Care: Status post right total knee arthroplasty Management per primary admitting orthopedic surgery team including DVT prophylaxis, pain management, wound/dressing management, weightbearing, and PT/OT. Currently DVT prophylaxis with Xarelto along with IVETTE hose and SCDs. Insulin-dependent diabetes mellitus with hyperglycemia Hold Ozempic. Patient to continue with Lantus 50 units nightly and glycemic protocol with NovoLog sliding scale.. Hypomagnesemia Magnesium 1.6. Patient received magnesium sulfate 2 g IVPB. Hypertension Continue daily medication regimen with propranolol 60 mg nightly and losartan 25 mg nightly. Anxiety and depression Continue daily medication regimen with duloxetine 120 mg nightly and Seroquel 100 mg nightly. Data and imaging reviewed: Postoperative labs completed and reviewed. CBC unremarkable. BMP normal findings.. Magnesium 1.6. Morning glucose 162. Vital signs reviewed. Blood pressure 138/80, heart rate 81, respiratory rate 17, temp 97.3 F, and SpO2 of 90% on room air. Patient is medically optimized from medical perspective for discharge once cleared by primary admitting orthopedic surgery team. Patient encouraged to use incentive spirometry as instructed. Thank you for allowing us to participate in the care of this pleasant patient. Do not hesitate to contact us with questions. Someone can be reached from the [facility] hospitalist group all hours of the day at [phone] or via [email or web address]. Patient was seen independently by Nurse Practitioner. This document was prepared using [employer] dictation software. Please allow for errors in director ship while rare they do occur. Hilario Dominguez NP rendered care for this patient independently, reviewed the findings and plan as documented in the note above. I did not physically speak with or examine the patient on this date. Objective - Vital Signs Vital signs: Vital Signs Temp 97.3 F L 11/22/23 06:56 Pulse 81 11/22/23 06:56 Resp 17 11/22/23 06:56 BP 138/80 11/22/23 06:56 Pulse Ox 90 L 11/22/23 06:56 FiO2 Intake & Output 11/21/23 11/22/23 11/22/23 18:59 06:59 18:59 Other: Voiding Method Toilet # Voids 3 3 # Bowel Movements 1 - Labs CBC & Chem 7: 11/21/23 02:47 11/21/23 02:47 Labs: Abnormal Lab Results - Last 24 Hours (Table) 11/21/23 11/21/23 11/21/23 Range/Units 02:47 02:47 11:22 Immature Gran # 0.06 H (0.00-0.04) X 10*3/uL Est GFR (CKD-EPI) 53 L (>=60) Glucose 164 H (70-110) mg/dL POC Glucose (mg/dL) 211 H (70-110) mg/dL Calcium 8.6 L (8.7-10.3) mg/dL 11/21/23 11/21/23 11/22/23 Range/Units 16:35 22:04 06:18 Immature Gran # (0.00-0.04) X 10*3/uL Est GFR (CKD-EPI) (>=60) Glucose (70-110) mg/dL POC Glucose (mg/dL) 229 H 222 H 162 H (70-110) mg/dL Calcium (8.7-10.3) mg/dL
== END 2023-11-22 13:35 | disposition home health service (06) ==
LOC: OR 10:41 → 4SSUR 13:46 → OR 11-21 14:40 → 4SSUR 11-21 14:40
PROVIDERS: ADMIT Orthopaedic Surgery; ATTEND Orthopaedic Surgery
DX: M17.11 Unilateral primary osteoarthritis, right knee
CPT/HCPCS: 64448; 64999; 80048; 83735; 85025